=== PATIENT | male | born 1955 | race Caucasian/White ===

== ENCOUNTER 2019-02-01 15:48 | Observation (INO) ==
[2019-02-01] MEDS ORDERED: ZOFRAN INJ 4 MG VIAL IVP PRN (18:39)
[2019-02-01] MEDS ORDERED: PROVENTIL NEB TX 0.083% 2.5MG/ 3ML NEB PRN (18:41)
[2019-02-01] MEDS ORDERED: PHARMACY CONSULT - VANCOMYCIN XX SCH (19:00)
[2019-02-01 19:23] LABS: BASOPHILS % (AUTO) 0.2 % (0.2-1.0); EOSINOPHILS # (AUTO) 0.5 x10^3/uL (0.0-0.2); EOSINOPHILS % (AUTO) 3.7 % (0.9-2.9); HEMATOCRIT 42.8 % (42.0-54.0); HEMOGLOBIN 14.3 g/dL (13.5-18.0); LYMPHOCYTES # (AUTO) 2.8 X10^3/uL (1.3-2.9); LYMPHOCYTES % (AUTO) 18.8 % (21.0-51.0); MEAN CORPUSCULAR HEMOGLOBIN 30.7 pg (27.0-34.0); MEAN CORPUSCULAR HGB CONC 33.4 g/dL (33.0-35.0); MEAN CORPUSCULAR VOLUME 91.9 fL (80.0-100.0); MEAN PLATELET VOLUME 8.1 fL (7.4-11.0); MONOCYTES % (AUTO) 13.9 % (0.0-13.0); NEUTROPHILS # (AUTO) 9.3 x10^3/uL (2.2-4.8); NEUTROPHILS % (AUTO) 63.4 % (42.0-75.0); PLATELET COUNT 250 X10^3/uL (150.0-450.0); RED BLOOD COUNT 4.65 X10^6/uL (4.7-6.0); WHITE BLOOD COUNT 14.7 X10^3/uL (3.6-10.0)
[2019-02-01 19:33] LABS: ALANINE AMINOTRANSFERASE 20 Units/L (12-78); ALBUMIN 2.8 g/dL (3.4-5.0); ALKALINE PHOSPHATASE 64 Units/L (46-116); ASPARTATE AMINO TRANSFERASE 17 Units/L (15-37); BLOOD UREA NITROGEN 19 mg/dL (7-18); CALCIUM 8.5 mg/dL (8.5-10.1); CARBON DIOXIDE 29.1 mmol/L (21-32); CHLORIDE 101 mmol/L (98-107); COR CA(FOR HYPOALB) 9.5 mg/dL (8.5-10.1); CREATININE 1.33 mg/dL (0.70-1.30); SODIUM 139 mmol/L (136-145); eGFR NON BLACK RACES 58 (>60)
[2019-02-01] MEDS: NS 1000 ML 1,000 ML IV SCH (21:28)
[2019-02-01] MEDS: VANCOMYCIN HCL 1 G in D5W 250 ML IV 250 ML IV SCH (21:28)
[2019-02-01] MEDS ORDERED: POTASSIUM CHL 40 MEQ/NS 0.45% 500 ML IV PRN (21:30)
[2019-02-01] MEDS ORDERED: MICRO K EXTEN CAP 10 MEQ PO PRN (21:30)
[2019-02-01] MEDS ORDERED: POTASSIUM CHL 60 MEQ/NS 0.45% 500 ML IV PRN (21:30)
[2019-02-01] MEDS ORDERED: K-RIDER 10 MEQ/NS 100 ML 10 MEQ/100 ML BAG IV PRN (21:30)
[2019-02-01] MEDS ORDERED: POTASSIUM CHLORIDE LIQ 20 MEQ UDC PO PRN (21:30)
[2019-02-01] MEDS ORDERED: KLOR-CON PO PRN (21:30)
--- NOTE | 2019-02-01 22:59 | DR.UPDATE ---
H&P Update History and Physical Update: History and Physical reviewed and patient examined. Changes noted: Yes with the following: WAS SEEN IN THE OFFICE TODAY FOR RIGHT LOWER LEG CELLULITIS. HE WAS GIVEN A ROCEPHIN INJECTION YESTERDAY AND STARTED ON BACTRIM, HOWEVER, LEG APPEARS TO BE MORE REDDENED AND SWOLLEN TODAY. HE WAS ADMITTED FOR FURTHER EVALUATION AND TREATMENT OF RIGHT LOWER EXTREMITY CELLULITIS. ON ADMISSION, WE WILL OBTAIN A CBC, CMP, BLOOD CULTURES, WOUND CULTURES. WE WILL START NORMAL SALINE AND IV VANCOMYCIN. OTHERWISE, WE WILL FOLLOW UP WITH AM LABS AND CONTINUE TO MONITOR. Prescription drug monitoring program results: PDMP was not reviewed
[2019-02-01] MEDS: K-DUR TAB 20 MEQ PO PRN (23:05)
[2019-02-01] MEDS: MAGNESIUM SULFATE 1 GRAM/100 mL PREMIX 1 GM/100 ML BAG IV PRN (23:05)
[2019-02-02] MEDS: MAGNESIUM SULFATE 1 GRAM/100 mL PREMIX 1 GM/100 ML BAG IV PRN ×3 (00:15→02:18)
[2019-02-02] MEDS: VANCOMYCIN HCL 1 G in D5W 250 ML IV 250 ML IV SCH ×3 (05:24→22:58)
[2019-02-02 05:53] LABS: BASOPHILS % (AUTO) 0.3 % (0.2-1.0); EOSINOPHILS # (AUTO) 0.5 x10^3/uL (0.0-0.2); EOSINOPHILS % (AUTO) 3.7 % (0.9-2.9); HEMATOCRIT 42.3 % (42.0-54.0); LYMPHOCYTES # (AUTO) 2.6 X10^3/uL (1.3-2.9); LYMPHOCYTES % (AUTO) 18.8 % (21.0-51.0); MEAN CORPUSCULAR HEMOGLOBIN 30.4 pg (27.0-34.0); MEAN CORPUSCULAR HGB CONC 33.1 g/dL (33.0-35.0); MEAN CORPUSCULAR VOLUME 91.8 fL (80.0-100.0); MONOCYTES % (AUTO) 14.3 % (0.0-13.0); NEUTROPHILS # (AUTO) 8.8 x10^3/uL (2.2-4.8); NEUTROPHILS % (AUTO) 62.9 % (42.0-75.0); PLATELET COUNT 256 X10^3/uL (150.0-450.0); RED BLOOD COUNT 4.61 X10^6/uL (4.7-6.0); RED CELL DISTRIBUTION WIDTH 14.2 % (11.6-16.5)
[2019-02-02 06:14] LABS: ALANINE AMINOTRANSFERASE 19 Units/L (12-78); ALBUMIN 2.6 g/dL (3.4-5.0); ALKALINE PHOSPHATASE 56 Units/L (46-116); ASPARTATE AMINO TRANSFERASE 17 Units/L (15-37); BLOOD UREA NITROGEN 14 mg/dL (7-18); CALCIUM 8.1 mg/dL (8.5-10.1); CARBON DIOXIDE 26.5 mmol/L (21-32); CHLORIDE 101 mmol/L (98-107); COR CA(FOR HYPOALB) 9.2 mg/dL (8.5-10.1); COR NA(FOR HYPERGLY) 137 mmol/L (136-145); CREATININE 1.12 mg/dL (0.70-1.30); SODIUM 136 mmol/L (136-145); TOTAL PROTEIN 6.7 g/dL (6.4-8.2); eGFR NON BLACK RACES > 60 (>60)
[2019-02-02 06:16] VITALS: BMI 45.6
[2019-02-02 21:20] LABS: MAGNESIUM 1.9 mg/dL (1.7-2.9)
[2019-02-02] MEDS ORDERED: PHARMACY COMMENT IV NR (21:30)
[2019-02-02] MEDS: K-DUR TAB 20 MEQ PO PRN (21:36)
[2019-02-02] MEDS: NS 1000 ML 1,000 ML IV SCH (21:36)
[2019-02-02 22:06] LABS: CREATININE 1.29 mg/dL (0.70-1.30); VANCOMYCIN,TROUGH 11.4 ug/mL (15-20)
[2019-02-03] MEDS: VANCOMYCIN HCL 1 G in D5W 250 ML IV 250 ML IV SCH ×3 (05:11→21:21)
[2019-02-03 06:08] LABS: BASOPHILS % (AUTO) 0.4 % (0.2-1.0); EOSINOPHILS # (AUTO) 0.5 x10^3/uL (0.0-0.2); EOSINOPHILS % (AUTO) 3.9 % (0.9-2.9); HEMOGLOBIN 13.6 g/dL (13.5-18.0); LYMPHOCYTES # (AUTO) 2.1 X10^3/uL (1.3-2.9); LYMPHOCYTES % (AUTO) 17.6 % (21.0-51.0); MEAN CORPUSCULAR HEMOGLOBIN 30.2 pg (27.0-34.0); MEAN CORPUSCULAR HGB CONC 33.1 g/dL (33.0-35.0); MEAN CORPUSCULAR VOLUME 91.1 fL (80.0-100.0); MEAN PLATELET VOLUME 8.1 fL (7.4-11.0); MONOCYTES % (AUTO) 16.6 % (0.0-13.0); NEUTROPHILS # (AUTO) 7.5 x10^3/uL (2.2-4.8); NEUTROPHILS % (AUTO) 61.5 % (42.0-75.0); PLATELET COUNT 269 X10^3/uL (150.0-450.0); RED CELL DISTRIBUTION WIDTH 13.8 % (11.6-16.5); WHITE BLOOD COUNT 12.2 X10^3/uL (3.6-10.0)
[2019-02-03 06:27] LABS: ALANINE AMINOTRANSFERASE 20 Units/L (12-78); ALBUMIN 2.4 g/dL (3.4-5.0); ALKALINE PHOSPHATASE 57 Units/L (46-116); ASPARTATE AMINO TRANSFERASE 14 Units/L (15-37); BLOOD UREA NITROGEN 10 mg/dL (7-18); CALCIUM 8.1 mg/dL (8.5-10.1); CARBON DIOXIDE 27.7 mmol/L (21-32); CHLORIDE 106 mmol/L (98-107); COR CA(FOR HYPOALB) 9.4 mg/dL (8.5-10.1); COR NA(FOR HYPERGLY) 141 mmol/L (136-145); MAGNESIUM 1.8 mg/dL (1.7-2.9); SODIUM 140 mmol/L (136-145); TOTAL PROTEIN 6.5 g/dL (6.4-8.2); eGFR NON BLACK RACES > 60 (>60)
[2019-02-03] MEDS: MAGNESIUM SULFATE 1 GRAM/100 mL PREMIX 1 GM/100 ML BAG IV PRN (11:02)
[2019-02-03] MEDS: NS 1000 ML 1,000 ML IV SCH (16:22)
[2019-02-04 05:40] LABS: BASOPHILS # (AUTO) 0.1 X10^3/uL (0.0-0.1); BASOPHILS % (AUTO) 0.7 % (0.2-1.0); EOSINOPHILS # (AUTO) 0.7 x10^3/uL (0.0-0.2); EOSINOPHILS % (AUTO) 4.5 % (0.9-2.9); HEMATOCRIT 39.2 % (42.0-54.0); LYMPHOCYTES % (AUTO) 20.1 % (21.0-51.0); MEAN CORPUSCULAR HEMOGLOBIN 30.4 pg (27.0-34.0); MEAN CORPUSCULAR HGB CONC 33.2 g/dL (33.0-35.0); MEAN CORPUSCULAR VOLUME 91.6 fL (80.0-100.0); MEAN PLATELET VOLUME 7.8 fL (7.4-11.0); MONOCYTES # (AUTO) 1.6 x10^3/uL (0.3-0.8); MONOCYTES % (AUTO) 10.4 % (0.0-13.0); NEUTROPHILS # (AUTO) 9.7 x10^3/uL (2.2-4.8); NEUTROPHILS % (AUTO) 64.3 % (42.0-75.0); PLATELET COUNT 307 X10^3/uL (150.0-450.0); RED BLOOD COUNT 4.28 X10^6/uL (4.7-6.0); RED CELL DISTRIBUTION WIDTH 14.5 % (11.6-16.5)
[2019-02-04 05:50] LABS: ALANINE AMINOTRANSFERASE 20 Units/L (12-78); ALBUMIN 2.4 g/dL (3.4-5.0); ALKALINE PHOSPHATASE 54 Units/L (46-116); ASPARTATE AMINO TRANSFERASE 15 Units/L (15-37); BLOOD UREA NITROGEN 11 mg/dL (7-18); CALCIUM 8.1 mg/dL (8.5-10.1); CARBON DIOXIDE 28.1 mmol/L (21-32); CHLORIDE 105 mmol/L (98-107); COR CA(FOR HYPOALB) 9.4 mg/dL (8.5-10.1); CREATININE 0.97 mg/dL (0.70-1.30); SODIUM 141 mmol/L (136-145); TOTAL PROTEIN 6.7 g/dL (6.4-8.2); eGFR NON BLACK RACES > 60 (>60)
[2019-02-04] MEDS: MAGNESIUM SULFATE 1 GRAM/100 mL PREMIX 1 GM/100 ML BAG IV PRN ×2 (06:30→09:03)
[2019-02-04 07:03] LABS: CREATININE 1.01 mg/dL (0.70-1.30); VANCOMYCIN,TROUGH 13.5 ug/mL (15-20)
[2019-02-04] MEDS: VANCOMYCIN HCL 1 G in D5W 250 ML IV 250 ML IV SCH (07:07)
[2019-02-04 12:03] VITALS: BP 137/67
--- NOTE | 2019-03-17 11:22 | PCM.PROG ---
Progress Note - Progress Note for Day of Date of Exam: 02/03/19 - Subjective Subjective: WAS ADMITTED FOR RIGHT LOWER LEG CELLULITIS. TODAY, HE IS ALERT AND ORIENTED, LYING IN BED ON MORNING ROUNDS. HE CONTINUES WITH ERYTHEMA AND EDEMA TO THE RIGHT LOWER LEG. ON EXAMINATION, HEART IS REGULAR IN RATE AND RHYTHM. BILATERAL LUNGS ARE NOTED WITH DIMINISHED LUNG SOUNDS THROUGHOUT. ABDOMEN IS ROUND, SOFT, AND NON-TENDER WITH NORMAL BOWEL SOUNDS NOTED IN ALL QUADRANTS. RIGHT LEG IS NOTED WITH ERYTHMAS AND EDEMA. HIS VITALS THIS MORNING ARE 98.5-88-20-92%-120/59. LABS WERE OBTAINED. ABNORMAL LAB VALUES INCLUDE THE FOLLOWING: WBC 14.0, RBC 4.61, GLUCOSE 125, CALCIUM 8.1, ALBUMIN 2.6. BLOOD CULTURES ARE PENDING. HE IS CURRENTLY RECEIVING IV FLUIDS AND IV VANCOMYCIN. HOME MEDICATIONS WERE RESUMED. WE WILL CONTINUE WITH CURRENT PLAN OF CARE TODAY. OTHERWISE, WE WILL FOLLOW UP WITH AM LABS AND CONTINUE TO MONITOR. - Past Medical Family Social History Past Med/Fam/Surg Hx: No changes since H&P Allergies: Allergies aspirin Allergy (Verified 02/01/19 18:23) ibuprofen Allergy (Verified 02/01/19 18:23) - Review of Systems ROS: No change since H&P - Vital Signs and I&O's Vital Signs: Temperature 97.3 F Pulse Rate [Left Brachial] 76 Pulse Rate 80 Respiratory Rate 20 Blood Pressure [Left Arm] 137/67 O2 Sat by Pulse Oximetry 93 - Physical Exam Oriented: Normal Eyes: Normal Ear: Normal Nose: Normal Throat: Normal Respiratory: Generalized, Diminished Cardiovascular: Normal : Normal Auscultation: Bowel Sounds: Normal Palpation: Normal Tenderness: Normal Skin: Normal Musculoskeletal: Right, Leg, Swelling, Tender Psychiatric: Normal Mood Description: Calm Affect: Normal Speech Pattern: Clear, Appropriate - Laboratory and Diagnostics Result Diagrams: 02/04/19 05:05 02/04/19 05:05 Labs: 02/01/19 19:05 Blood Blood Culture - Final 02/01/19 18:55 Blood Blood Culture - Final Laboratory WBC 15.0 X10^3/uL (3.6-10.0) H 02/04/19 05:05 RBC 4.28 X10^6/uL (4.7-6.0) L 02/04/19 05:05 Hgb 13.0 g/dL (13.5-18.0) L 02/04/19 05:05 Hct 39.2 % (42.0-54.0) L 02/04/19 05:05 MCV 91.6 fL (80.0-100.0) 02/04/19 05:05 MCH 30.4 pg (27.0-34.0) 02/04/19 05:05 MCHC 33.2 g/dL (33.0-35.0) 02/04/19 05:05 RDW 14.5 % (11.6-16.5) 02/04/19 05:05 Plt Count 307 X10^3/uL (150.0-450.0) 02/04/19 05:05 MPV 7.8 fL (7.4-11.0) 02/04/19 05:05 Neut % (Auto) 64.3 % (42.0-75.0) 02/04/19 05:05 Lymph % (Auto) 20.1 % (21.0-51.0) L 02/04/19 05:05 [place] % (Auto) 10.4 % (0.0-13.0) 02/04/19 05:05 Eos % (Auto) 4.5 % (0.9-2.9) H 02/04/19 05:05 Baso % (Auto) 0.7 % (0.2-1.0) 02/04/19 05:05 Neut # (Auto) 9.7 x10^3/uL (2.2-4.8) H 02/04/19 05:05 Lymph # (Auto) 3.0 X10^3/uL (1.3-2.9) H 02/04/19 05:05 [place] # (Auto) 1.6 x10^3/uL (0.3-0.8) H 02/04/19 05:05 Eos # (Auto) 0.7 x10^3/uL (0.0-0.2) H 02/04/19 05:05 Baso # (Auto) 0.1 X10^3/uL (0.0-0.1) 02/04/19 05:05 Absolute Nucleated RBC 0.0 /100WBC 02/04/19 05:05 Sodium 141 mmol/L (136-145) 02/04/19 05:05 Corrected Sodium TNP 02/04/19 05:05 Potassium 4.2 mmol/L (3.5-5.1) 02/04/19 05:05 Chloride 105 mmol/L (98-107) 02/04/19 05:05 Carbon Dioxide 28.1 mmol/L (21-32) 02/04/19 05:05 BUN 11 mg/dL (7-18) 02/04/19 05:05 Creatinine 0.97 mg/dL (0.70-1.30) 02/04/19 05:05 Creatinine 1.01 mg/dL (0.70-1.30) 02/04/19 05:05 Est GFR (MDRD) Af Amer > 60 (>60) 02/04/19 05:05 Est GFR (MDRD) Non-Af > 60 (>60) 02/04/19 05:05 Glucose 94 mg/dL (65-99) 02/04/19 05:05 Calcium 8.1 mg/dL (8.5-10.1) L 02/04/19 05:05 Corrected Calcium 9.4 mg/dL (8.5-10.1) 02/04/19 05:05 Magnesium 1.8 mg/dL (1.7-2.9) 02/04/19 05:05 Total Bilirubin 0.60 mg/dL (0.2-1.0) 02/04/19 05:05 AST 15 Units/L (15-37) 02/04/19 05:05 ALT 20 Units/L (12-78) 02/04/19 05:05 Alkaline Phosphatase 54 Units/L (46-116) 02/04/19 05:05 Total Protein 6.7 g/dL (6.4-8.2) 02/04/19 05:05 Albumin 2.4 g/dL (3.4-5.0) L 02/04/19 05:05 Globulin 4.3 g/dL (2.5-4.5) 02/04/19 05:05 Albumin/Globulin Ratio 0.6 Ratio (1.1-2.1) L 02/04/19 05:05 Vancomycin Trough 13.5 ug/mL (15-20) L 02/04/19 05:05 - Plan (1) Lower extremity cellulitis Status: Acute Qualifiers: Laterality: right Qualified Code(s): L03.115 - Cellulitis of right lower limb Plan: IV FLUIDS, IV VANCOMYCIN, BLOOD CULTURES PENDING, CONTINUE TO MONITOR
== END 2019-02-04 12:30 | disposition home or self-care (01) ==
LOC: MED/SURG
PROVIDERS: ADMIT Internal Medicine; ATTEND Internal Medicine
DX: R11.0 Nausea; R60.0 Localized edema; M79.661 Pain in right lower leg; L03.115 Cellulitis of right lower limb; Z79.899 Other long term (current) drug therapy; R51 Headache
CPT/HCPCS: 36415; 80053; 80202; 82565; 83735; 85025; 87040; 94760; 96367; A4216; G0378; J3370; J3475; J7030; J7060

== ENCOUNTER 2024-04-20 10:53 | Observation (INO) ==
[2024-04-20 11:16] VITALS: BMI 49.6
[2024-04-20] MEDS: DUONEB 0.5 MG/3 MG (3 mL) NEB ONE (11:43)
[2024-04-20] MEDS: SOLU-Medrol 125 MG VIAL IM ONE (11:43)
[2024-04-20 12:21] LABS: BASOPHILS # (AUTO) 0.1 X10^3/uL (0.0-0.1); BASOPHILS % (AUTO) 0.5 % (0.2-1.0); EOSINOPHILS # (AUTO) 0.4 x10^3/uL (0.0-0.2); EOSINOPHILS % (AUTO) 2.9 % (0.9-2.9); HEMATOCRIT 47.2 % (42.0-54.0); HEMOGLOBIN 15.8 g/dL (13.5-18.0); LYMPHOCYTES # (AUTO) 1.7 X10^3/uL (1.3-2.9); LYMPHOCYTES % (AUTO) 11.5 % (21.0-51.0); MEAN CORPUSCULAR HEMOGLOBIN 30.8 pg (27.0-34.0); MEAN CORPUSCULAR HGB CONC 33.4 g/dL (33.0-35.0); MEAN CORPUSCULAR VOLUME 92.1 fL (80.0-100.0); MEAN PLATELET VOLUME 7.5 fL (7.4-11.0); MONOCYTES # (AUTO) 1.5 x10^3/uL (0.3-0.8); MONOCYTES % (AUTO) 10.3 % (0.0-13.0); NEUTROPHILS # (AUTO) 10.8 x10^3/uL (2.2-4.8); NEUTROPHILS % (AUTO) 74.8 % (42.0-75.0); PLATELET COUNT 282 X10^3/uL (150.0-450.0); RED BLOOD COUNT 5.13 X10^6/uL (4.7-6.0); RED CELL DISTRIBUTION WIDTH 14.9 % (11.6-16.5); WHITE BLOOD COUNT 14.4 X10^3/uL (3.6-10.0)
[2024-04-20 12:33] LABS: CALCIUM 8.6 mg/dL (8.5-10.1); CARBON DIOXIDE 36.1 mmol/L (21-32); COR CA(FOR HYPOALB) 9.4 mg/dL (8.5-10.1); CREATININE 1.63 mg/dL (0.70-1.30); POTASSIUM 4.9 mmol/L (3.5-5.1); TOTAL PROTEIN 7.4 g/dL (6.4-8.2)
--- NOTE | 2024-04-20 13:44 | DR.SOBA ---
HPI Time Seen Time Seen by Provider: 04/20/24 13:32 Primary Care Physician Primary Care Physician: Zackary HPI Comment HPI Comment: Patient with history of COPD has been out of his Trelegy inhaler. He has been having worsening shortness of breath since Monday. Feels like he was sick with upper respiratory infection. He has been having fever and cough. Complains of wheezing and shortness of breath. Complaints Chief Complaint:: Patient states that starting Monday he has felt like he has been sick with an upper respiratory illness. He states that he has been running fevers and coughing. He states that last night he was felt like he couldn't catch his breath. He states that he has COPD and also has a Trelegy inhailer. He states that he was unable to get it from the pharmacy for a few days and just now was able to get it. He is unsure if this has caused his issues with the shortness of breath. COVID-19 Coronavirus risk:travel/contact w/high risk person: No Has patient experienced Coronavirus symptoms: No Source History Provided: Patient Mode of Arrival Mode of Arrival: Wheelchair Timing Onset of Chief Complaint: 04/19/24 PMH PMH Past Medical History: Yes Past Medical History: Anxiety, Arthritis, COPD, CVA, Depression, Dyslipidemia, GERD, Hypertension and Kidney Stones Past Surgical History: Yes Surgical History: TURP and Lithotripsy Family History History of Family Medical Conditions: Yes Family Medical History: Diabetes Mellitus, Cancer, Coronary Artery Disease, Heart Failure, Sudden Cardiac and Hypertension Social History Does patient currently use any type of tobacco product: Yes Have you used tobacco products in the last 12 months: Yes Type of Tobacco Use: Cigarettes Does any household member use tobacco: Yes Alcohol Use: None Do you use any recreational Drugs:: No Lives With: Family Lives Where: Home Travel Risk Coronavirus risk:travel/contact w/high risk person: No Has patient experienced Coronavirus symptoms: No Infectious screening In the last 2 months have you had wt loss of >10#?: NO Have you had fever, night sweats or hemotysis?: No Have you traveled outside the country in the last 6 months?: No Isolation: Standard ROS Review of Systems Constitutional: No Symptoms Reported Eyes: No Symptoms Reported ENTM: No Symptoms Reported Respiratoy: See HPI, Non-Productive Cough, Short of Breath and Wheezing Cardiovascular: No Symptoms Reported; negative Chest Pain, Edema or Syncope Gastrointestinal/Abdominal: No Symptoms Reported Genitourinary: No Symptoms Reported Neurological: No Symptoms Reported Musculoskeletal: No Symptoms Reported Integumentary: No Symptoms Reported Hematologic/Lymphatic: No Symptoms Reported Endocrine: No Symptoms Reported Psychiatric: No Symptoms Reported All Other Systems: Reviewed and Negative PE Vital Signs Vitals: Vital Signs Temperature 97.6 F Pulse Rate 82 Pulse Rate 83 Pulse Rate 83 Pulse Rate 84 Pulse Rate 85 Pulse Rate 84 Pulse Rate 87 Pulse Rate 85 Pulse Rate 86 Pulse Rate 97 Respiratory Rate 29 Respiratory Rate 27 Respiratory Rate 32 Respiratory Rate 26 Respiratory Rate 28 Respiratory Rate 32 Respiratory Rate 30 Respiratory Rate 31 Respiratory Rate 18 Blood Pressure 160/73 Blood Pressure 155/73 Blood Pressure 150/77 Blood Pressure 160/74 Blood Pressure 160/74 Blood Pressure 136/89 O2 Sat by Pulse Oximetry 94 O2 Sat by Pulse Oximetry 94 O2 Sat by Pulse Oximetry 94 O2 Sat by Pulse Oximetry 95 O2 Sat by Pulse Oximetry 94 O2 Sat by Pulse Oximetry 100 O2 Sat by Pulse Oximetry 96 O2 Sat by Pulse Oximetry 88 O2 Sat by Pulse Oximetry 87 O2 Sat by Pulse Oximetry 93 General Limitations: No Limitations General Appearance: Alert and In No Apparent Distress Head Head Exam: Normal Inspection Eyes Eye exam: Normal Appearance ENT ENT Exam: Normal Exam Neck Neck Exam: Normal Inspection Chest Chest Inspection: Normal Inspection Respiratory Respiratory Exam: Other (Diminished right lower lung. Otherwise coarse and wheezing bilaterally.) Respiratory Exam: Bilateral: Wheezing Cardiovascular Cardiovascular Exam: Regular Rate and Normal Rhythm Abdominal Exam Abdominal Exam: Normal Inspection, Normal Bowel Sounds and Soft Extremities Extremities Exam: Normal Inspection Back Back Exam: Normal Inspection Neurologic Neurological Exam: Alert and Oriented X3 Psychiatric Psychiatric Exam: Normal Affect and Normal Mood Skin Skin Exam: Warm, Dry, Intact and Normal Color COURSE Consultation Called: 14:09 Consultation Comments: Discussed case with Dr. Tran. Will admit patient for COPD exacerbation and pneumonia of the right lower lung. [facility]OR Labs Reviewed 04/20/24 12:12 04/20/24 12:12 Laboratory: WBC 14.4 X10^3/uL (3.6-10.0) H 04/20/24 12:12 RBC 5.13 X10^6/uL (4.7-6.0) 04/20/24 12:12 Hgb 15.8 g/dL (13.5-18.0) 04/20/24 12:12 Hct 47.2 % (42.0-54.0) 04/20/24 12:12 MCV 92.1 fL (80.0-100.0) 04/20/24 12:12 MCH 30.8 pg (27.0-34.0) 04/20/24 12:12 MCHC 33.4 g/dL (33.0-35.0) 04/20/24 12:12 RDW 14.9 % (11.6-16.5) 04/20/24 12:12 Plt Count 282 X10^3/uL (150.0-450.0) 04/20/24 12:12 MPV 7.5 fL (7.4-11.0) 04/20/24 12:12 Neut % (Auto) 74.8 % (42.0-75.0) 04/20/24 12:12 Lymph % (Auto) 11.5 % (21.0-51.0) L 04/20/24 12:12 [place] % (Auto) 10.3 % (0.0-13.0) 04/20/24 12:12 Eos % (Auto) 2.9 % (0.9-2.9) 04/20/24 12:12 Baso % (Auto) 0.5 % (0.2-1.0) 04/20/24 12:12 Neut # (Auto) 10.8 x10^3/uL (2.2-4.8) H 04/20/24 12:12 Lymph # (Auto) 1.7 X10^3/uL (1.3-2.9) 04/20/24 12:12 [place] # (Auto) 1.5 x10^3/uL (0.3-0.8) H 04/20/24 12:12 Eos # (Auto) 0.4 x10^3/uL (0.0-0.2) H 04/20/24 12:12 Baso # (Auto) 0.1 X10^3/uL (0.0-0.1) 04/20/24 12:12 Absolute Nucleated RBC 0.1 /100WBC 04/20/24 12:12 Sodium 141 mmol/L (136-145) 04/20/24 12:12 Corrected Sodium 142 mmol/L (136-145) 04/20/24 12:12 Potassium 4.9 mmol/L (3.5-5.1) 04/20/24 12:12 Chloride 102 mmol/L (98-107) 04/20/24 12:12 Carbon Dioxide 36.1 mmol/L (21-32) H 04/20/24 12:12 BUN 24 mg/dL (7-18) H 04/20/24 12:12 Creatinine 1.63 mg/dL (0.70-1.30) H 04/20/24 12:12 Est GFR (MDRD) Af Amer 55 (>60) L 04/20/24 12:12 Est GFR (MDRD) Non-Af 45 (>60) L 04/20/24 12:12 Glucose 131 mg/dL (65-99) H 04/20/24 12:12 Calcium 8.6 mg/dL (8.5-10.1) 04/20/24 12:12 Corrected Calcium 9.4 mg/dL (8.5-10.1) 04/20/24 12:12 Total Bilirubin 0.40 mg/dL (0.2-1.0) 04/20/24 12:12 AST 16 Units/L (15-37) 04/20/24 12:12 ALT 19 Units/L (12-78) 04/20/24 12:12 Alkaline Phosphatase 75 Units/L (46-116) 04/20/24 12:12 B-Natriuretic Peptide 82.1 pg/mL (0-79) H 04/20/24 12:12 Total Protein 7.4 g/dL (6.4-8.2) 04/20/24 12:12 Albumin 3.0 g/dL (3.4-5.0) L 04/20/24 12:12 Globulin 4.4 g/dL (2.5-4.5) 04/20/24 12:12 Albumin/Globulin Ratio 0.7 Ratio (1.1-2.1) L 04/20/24 12:12 Opioid Opioid Risk Tool Age (Dominic box if 16-45): No History of Preadolescent Sexual Abuse: No Total: 0 Total Score Risk Category: Low Risk Copyright: Pierce SHEA predicting aberrant behaviors Discharge Plan Diagnosis Discharge Problem: COPD exacerbation, Community acquired pneumonia of right lower lobe of lung Discharge Plan Patient Disposition: ADMITTED INPATIENT Condition: Stable Prescriptions: No Action meloxicam 15 mg tablet 15 mg PO QDAY Trelegy Ellipta 100-62.5-25 mcg blister with device 1 ea INHALATION QDAY clopidogrel 75 mg tablet 75 mg PO QDAY hydrocodone-acetaminophen 10-325 mg tablet 1 tab PO TID PRN (Reason: pain) omeprazole 40 mg capsule,delayed release(DR/EC) 40 mg PO QDAY montelukast 10 mg tablet 10 mg PO DAILY furosemide 20 mg tablet 20 mg PO QDAY paroxetine HCl 40 mg tablet 40 mg PO QDAY sildenafil (pulm.hypertension) 20 mg tablet 20 mg PO QDAY PRN Health Concerns: Post Hospitalization: new medications and changes needed to prevent readmission or further decline. Pt educated and given instructions on all concerns. Plan of Treatment: Continue with present treatment and follow up plan. Pt is to keep follow up appointment as instructed and take medications as ordered. Orders to Discharge Patient Discharge Orders: Transfer (Routine); Ordered 04/20/24 Ordered By: Tao Henriquez Follow ups/Referrals Follow ups/Referrals: Palomo Raymundo [Primary Care Provider] - 3 days Instructions Stand Alone Forms: Find Help Web Site, Post Hospital Follow Up Care
[2024-04-20] MEDS: CIPRO IV 400 MG PREMIX* 400 MG/200 ML IV.SOLN. IV ONE (14:04)
[2024-04-20 15:52] LABS: ABG BASE EXCESS 4.9 mmol/L (-2.0-2.0)
[2024-04-20] MEDS: NICOTINE PATCH TD SCH (16:33)
[2024-04-20] MEDS: NS 1,000 ML IV 1,000 ML IV SCH (16:34)
[2024-04-20] MEDS: DUONEB 0.5 MG/3 MG (3 mL) NEB SCH (17:10)
[2024-04-20] MEDS: PULMICORT NEB TX 0.5 MG NEB SCH (19:59)
[2024-04-20] MEDS: SOLU-Medrol 125 MG VIAL IVP SCH (21:56)
[2024-04-20] MEDS: CIPRO IV 400 MG PREMIX* 400 MG/200 ML IV.SOLN. IV SCH (21:58)
--- NOTE | 2024-04-20 23:03 | RAD ---
EXAM:CHEST, 1 VIEWHISTORY:short of breath;COMPARISON:05/31/2023FINDINGS:The trachea is midline. The cardiac silhouette is unremarkable . The lungs are clear without focal infiltrate or effusion. The bony thorax is unremarkable.IMPRESSION:No acute cardiopulmonary disease.THIS IS AN ELECTRONICALLY VERIFIED FINAL REPORT04/20/2024 10:59 PM - Electronically signed by Trav Benavidez MD
[2024-04-21] MEDS: PEPCID TAB 20 MG PO SCH (00:54)
[2024-04-21] MEDS: NORCO 5/325 MG TAB PO PRN (00:56)
[2024-04-21 04:45] LABS: BILIRUBIN,URINE NEGATIVE (NEGATIVE); BLOOD/HEMOGLOBIN,URINE 1+ (NEGATIVE); GLUCOSE, URINE 2+ (NEGATIVE); KETONES,URINE NEGATIVE (NEGATIVE); LEUKOCYTE ESTERASE ,URINE NEGATIVE (NEGATIVE); NITRITES,URINE NEGATIVE (NEGATIVE); PROTEIN,URINE 2+ (NEGATIVE); UROBILINOGEN,URINE NORMAL (NORMAL)
[2024-04-21 04:48] LABS: APPEARANCE,URINE CLEAR (CLEAR); BACTERIA,URINE NEGATIVE /HPF (NEGATIVE); COLOR,URINE YELLOW (YELLOW); RBC,URINE NONE SEEN /HPF (0-3); SQUAMOUS EPITHELIAL CELL,UR RARE /HPF (NEGATIVE)
[2024-04-21 06:24] LABS: BASOPHILS % (AUTO) 0.4 % (0.2-1.0); HEMATOCRIT 47.4 % (42.0-54.0); LYMPHOCYTES # (AUTO) 0.6 X10^3/uL (1.3-2.9); LYMPHOCYTES % (AUTO) 4.5 % (21.0-51.0); MEAN CORPUSCULAR HEMOGLOBIN 31.2 pg (27.0-34.0); MEAN CORPUSCULAR HGB CONC 33.7 g/dL (33.0-35.0); MEAN CORPUSCULAR VOLUME 92.5 fL (80.0-100.0); MONOCYTES # (AUTO) 0.3 x10^3/uL (0.3-0.8); MONOCYTES % (AUTO) 2.2 % (0.0-13.0); NEUTROPHILS # (AUTO) 11.9 x10^3/uL (2.2-4.8); NEUTROPHILS % (AUTO) 92.9 % (42.0-75.0); PLATELET COUNT 302 X10^3/uL (150.0-450.0); RED BLOOD COUNT 5.13 X10^6/uL (4.7-6.0); RED CELL DISTRIBUTION WIDTH 14.8 % (11.6-16.5); WHITE BLOOD COUNT 12.8 X10^3/uL (3.6-10.0)
[2024-04-21 06:25] LABS: ALANINE AMINOTRANSFERASE 18 Units/L (12-78); ALKALINE PHOSPHATASE 82 Units/L (46-116); ASPARTATE AMINO TRANSFERASE 16 Units/L (15-37); BLOOD UREA NITROGEN 23 mg/dL (7-18); CALCIUM 8.6 mg/dL (8.5-10.1); CARBON DIOXIDE 31.1 mmol/L (21-32); CHLORIDE 103 mmol/L (98-107); COR CA(FOR HYPOALB) 9.4 mg/dL (8.5-10.1); COR NA(FOR HYPERGLY) 142 mmol/L (136-145); CREATININE 1.35 mg/dL (0.70-1.30); GLUCOSE 159 mg/dL (65-99); POTASSIUM 4.5 mmol/L (3.5-5.1); SODIUM 141 mmol/L (136-145); TOTAL PROTEIN 7.6 g/dL (6.4-8.2); eGFR NON BLACK RACES 56 (>60)
[2024-04-21 06:49] LABS: PLATELET MORPHOLOGY COMMENT NORMAL (NORMAL)
[2024-04-21] MEDS: PULMICORT NEB TX 0.5 MG NEB ONE (07:12)
[2024-04-21] MEDS: TYLENOL 325 MG TAB PO PRN (10:24)
[2024-04-21] MEDS: PLAVIX PO SCH (14:31)
[2024-04-21] MEDS: SINGULAIR TAB 10 MG PO SCH (14:32)
[2024-04-21] MEDS: LASIX IVP SCH (14:33)
--- NOTE | 2024-04-21 14:34 | DR.H&P ---
H&P History & Physical for Day of: H&P Date: 04/21/24 Chief Complaint Chief Complaint: Shortness of breath History of Present Illness History of Present Illness: Patient presented to the ER from home due to worsening shortness of breath. He was without his Trelegy inhaler for a couple of days before he was able to pick it up from the pharmacy. Since that time he is felt like his breathing was not right. In the ER he was thought to be in a COPD exacerbation with open pneumonia. Responded well to steroids and nebs. Overnight his breathing improved but he still required O2 supplementation. Today reports that his legs seem more swollen and he is feeling a little more short of breath than he was overnight. He is able to sit up without coughing as much. He is also able to tolerate a diet today. ROS: 12 point ROS negative except as noted above. PE: Elderly, morbidly obese male in no acute distress. Sitting up on the bedside eating lunch. Head NCAT. Hearing intact conversation. Extraocular manage grossly normal. Neck full range of motion. Heart regular rate and rhythm. Lungs with wheezing and rhonchi throughout the right lower lung daily and crackles at the left lower lung daily. Air movement is good. Belly is soft, protuberant, with bowel sounds present. Mood and affect are appropriate. Bilateral lower extremities with 1+ pitting edema. Past Medical History Past Medical History: Anxiety, Arthritis, COPD, CVA, Depression, Dyslipidemia, GERD, Hypertension and Kidney Stones Past Surgical History Surgical History: TURP and Lithotripsy Family History Family Medical History: Diabetes Mellitus and Cancer Social History Does patient currently use any type of tobacco product: Yes Have you used tobacco products in the last 12 months: Yes Type of Tobacco Use: Cigarettes How many years tobacco product used: 10 Does any household member use tobacco: Yes Alcohol Use: None Medications Home Medications: Home Medications Medication Instructions Recorded Confirmed Type clopidogrel 75 mg tablet 75 mg PO QDAY 05/31/23 04/20/24 History furosemide 20 mg tablet 20 mg PO QDAY 05/31/23 04/20/24 History hydrocodone 10 mg-acetaminophen 1 tab PO TID PRN pain 05/31/23 04/20/24 History 325 mg tablet montelukast 10 mg tablet 10 mg PO DAILY 05/31/23 04/20/24 History omeprazole 40 mg capsule,delayed 40 mg PO QDAY 05/31/23 04/20/24 History release paroxetine HCl 40 mg tablet 40 mg PO QDAY 05/31/23 04/20/24 History sildenafil (pulm.hypertension) 20 20 mg PO QDAY PRN 05/31/23 04/20/24 History mg tablet fluticasone fur. 100 mcg-umeclid 1 ea inhalation QDAY 03/26/24 04/20/24 History 62.5 mcg-vilant 25 mcg inhalat.powder (Trelegy Ellipta) meloxicam 15 mg tablet 15 mg PO QDAY 03/26/24 04/20/24 History Allergies Allergies Allergy/AdvReac Type Severity Reaction Status Date / Time No Known Allergies Allergy Verified 04/20/24 12:41 Labs 04/21/24 05:41 04/21/24 05:41 Labs: Laboratory WBC 12.8 X10^3/uL (3.6-10.0) H 04/21/24 05:41 RBC 5.13 X10^6/uL (4.7-6.0) 04/21/24 05:41 Hgb 16.0 g/dL (13.5-18.0) 04/21/24 05:41 Hct 47.4 % (42.0-54.0) 04/21/24 05:41 MCV 92.5 fL (80.0-100.0) 04/21/24 05:41 MCH 31.2 pg (27.0-34.0) 04/21/24 05:41 MCHC 33.7 g/dL (33.0-35.0) 04/21/24 05:41 RDW 14.8 % (11.6-16.5) 04/21/24 05:41 Plt Count 302 X10^3/uL (150.0-450.0) 04/21/24 05:41 Plt Count Comment Adequate (ADEQUATE) 04/21/24 05:41 MPV 8.0 fL (7.4-11.0) 04/21/24 05:41 Neut % (Auto) 92.9 % (42.0-75.0) H 04/21/24 05:41 Lymph % (Auto) 4.5 % (21.0-51.0) L 04/21/24 05:41 [place] % (Auto) 2.2 % (0.0-13.0) 04/21/24 05:41 Eos % (Auto) 0.0 % (0.9-2.9) L 04/21/24 05:41 Baso % (Auto) 0.4 % (0.2-1.0) 04/21/24 05:41 Neut # (Auto) 11.9 x10^3/uL (2.2-4.8) H 04/21/24 05:41 Lymph # (Auto) 0.6 X10^3/uL (1.3-2.9) L 04/21/24 05:41 [place] # (Auto) 0.3 x10^3/uL (0.3-0.8) 04/21/24 05:41 Eos # (Auto) 0.0 x10^3/uL (0.0-0.2) 04/21/24 05:41 Baso # (Auto) 0.0 X10^3/uL (0.0-0.1) 04/21/24 05:41 Absolute Nucleated RBC 0.1 /100WBC 04/21/24 05:41 Total Counted 100 04/21/24 05:41 Neutrophils % (Manual) 95 % (39-76) H 04/21/24 05:41 Lymphocytes % (Manual) 4 % (13-43) L 04/21/24 05:41 Monocytes % (Manual) 1 % (4-9) L 04/21/24 05:41 Plt Morphology Comment Normal (NORMAL) 04/21/24 05:41 RBC Morphology Normal (NORMAL) 04/21/24 05:41 Sample Site Rb 04/20/24 15:43 ABG pH 7.350 (7.35-7.45) 04/20/24 15:43 ABG pCO2 58.0 mmHg (35.0-45.0) H* 04/20/24 15:43 ABG pO2 62.0 mmHg (80.0-100.0) L 04/20/24 15:43 ABG HCO3 32.0 mmol/L (22-26) H* 04/20/24 15:43 ABG O2 Saturation 90.0 % (90-100) 04/20/24 15:43 ABG Base Excess 4.9 mmol/L (-2.0-2.0) H 04/20/24 15:43 Jered Test N/a 04/20/24 15:43 A-a Gradient 94.0 mmHg 04/20/24 15:43 FiO2 32.0 04/20/24 15:43 Blood Gas Comments Pt adelaida well. kg/eb 04/20/24 15:43 Sodium 141 mmol/L (136-145) 04/21/24 05:41 Corrected Sodium 142 mmol/L (136-145) 04/21/24 05:41 Potassium 4.5 mmol/L (3.5-5.1) 04/21/24 05:41 Chloride 103 mmol/L (98-107) 04/21/24 05:41 Carbon Dioxide 31.1 mmol/L (21-32) 04/21/24 05:41 BUN 23 mg/dL (7-18) H 04/21/24 05:41 Creatinine 1.35 mg/dL (0.70-1.30) H 04/21/24 05:41 Est GFR (MDRD) Af Amer > 60 (>60) 04/21/24 05:41 Est GFR (MDRD) Non-Af 56 (>60) L 04/21/24 05:41 Glucose 159 mg/dL (65-99) H 04/21/24 05:41 Calcium 8.6 mg/dL (8.5-10.1) 04/21/24 05:41 Corrected Calcium 9.4 mg/dL (8.5-10.1) 04/21/24 05:41 Total Bilirubin 0.30 mg/dL (0.2-1.0) 04/21/24 05:41 AST 16 Units/L (15-37) 04/21/24 05:41 ALT 18 Units/L (12-78) 04/21/24 05:41 Alkaline Phosphatase 82 Units/L (46-116) 04/21/24 05:41 B-Natriuretic Peptide 82.1 pg/mL (0-79) H 04/20/24 12:12 Total Protein 7.6 g/dL (6.4-8.2) 04/21/24 05:41 Albumin 3.0 g/dL (3.4-5.0) L 04/21/24 05:41 Globulin 4.6 g/dL (2.5-4.5) H 04/21/24 05:41 Albumin/Globulin Ratio 0.7 Ratio (1.1-2.1) L 04/21/24 05:41 Specimen Type Random urine 04/21/24 04:26 Urine Color Yellow (YELLOW) 04/21/24 04:26 Urine Appearance Clear (CLEAR) 04/21/24 04:26 Urine pH 6.0 (5.0 - 8.0) 04/21/24 04:26 Ur Specific [place] 1.015 (1.000-1.030) 04/21/24 04:26 Urine Protein 2+ (NEGATIVE) 04/21/24 04:26 Urine Glucose (UA) 2+ (NEGATIVE) 04/21/24 04:26 Urine Ketones Negative (NEGATIVE) 04/21/24 04:26 Urine Blood 1+ (NEGATIVE) 04/21/24 04:26 Urine Nitrite Negative (NEGATIVE) 04/21/24 04:26 Urine Bilirubin Negative (NEGATIVE) 04/21/24 04:26 Urine Urobilinogen Normal (NORMAL) 04/21/24 04:26 Ur Leukocyte Esterase Negative (NEGATIVE) 04/21/24 04:26 Urine RBC None seen /HPF (0-3) 04/21/24 04:26 Urine WBC 0-2 /HPF (0-5) 04/21/24 04:26 Ur Squamous Epith Cells Rare /HPF (NEGATIVE) 04/21/24 04:26 Urine Bacteria Negative /HPF (NEGATIVE) 04/21/24 04:26 Ur Culture Indicated? No/not indicated 04/21/24 04:26 Physical Exam Vital Signs: Vital Signs Temperature 97.9 F Temperature 98.6 F Pulse Rate [Brachial] 98 Pulse Rate [Brachial] 86 Pulse Rate 86 Respiratory Rate 24 Respiratory Rate 20 Respiratory Rate 22 Respiratory Rate 22 Blood Pressure [Right Arm] 147/86 Blood Pressure [Right Arm] 124/62 O2 Sat by Pulse Oximetry 91 O2 Sat by Pulse Oximetry 93 O2 Sat by Pulse Oximetry 93 Assessment/Plan (1) COPD exacerbation: Narrative Support Text: Continue nebs, steroids, and Trelegy. Back on fluids Status: Acute (2) Community acquired pneumonia of right lower lobe of lung: Narrative Support Text: Continue antibiotics. Status: Acute (3) Bilateral lower extremity edema: Narrative Support Text: Lasix 40 IV today and tomorrow. Resume home meds Monday Status: Acute (4) JACINTO and COPD overlap syndrome: Narrative Support Text: Stressed need to be compliant with CPAP Status: Acute (5) Morbid obesity: Narrative Support Text: Needs weight loss. Status: Acute (6) Sepsis: Qualifiers: Sepsis type: sepsis due to unspecified organism Sepsis acute organ dysfunction status: without acute organ dysfunction Qualified Code(s): A41.9 - Sepsis, unspecified organism Narrative Support Text: Due to tachycardia and tachypnea with COPD exacerbation/RLL PNA. Status: Acute
[2024-04-21] MEDS: NORCO 10/325 TAB PO PRN (21:47)
[2024-04-22 05:47] LABS: BASOPHILS # (AUTO) 0.1 X10^3/uL (0.0-0.1); BASOPHILS % (AUTO) 0.3 % (0.2-1.0); HEMATOCRIT 46.2 % (42.0-54.0); HEMOGLOBIN 15.2 g/dL (13.5-18.0); LYMPHOCYTES # (AUTO) 0.7 X10^3/uL (1.3-2.9); LYMPHOCYTES % (AUTO) 4.2 % (21.0-51.0); MEAN CORPUSCULAR HEMOGLOBIN 30.3 pg (27.0-34.0); MEAN CORPUSCULAR HGB CONC 32.9 g/dL (33.0-35.0); MEAN CORPUSCULAR VOLUME 92.3 fL (80.0-100.0); MEAN PLATELET VOLUME 7.6 fL (7.4-11.0); MONOCYTES # (AUTO) 1.1 x10^3/uL (0.3-0.8); MONOCYTES % (AUTO) 6.2 % (0.0-13.0); NEUTROPHILS # (AUTO) 15.7 x10^3/uL (2.2-4.8); NEUTROPHILS % (AUTO) 89.3 % (42.0-75.0); PLATELET COUNT 298 X10^3/uL (150.0-450.0); RED CELL DISTRIBUTION WIDTH 14.7 % (11.6-16.5); WHITE BLOOD COUNT 17.6 X10^3/uL (3.6-10.0)
[2024-04-22 05:58] LABS: ALANINE AMINOTRANSFERASE 16 Units/L (12-78); ALBUMIN 2.8 g/dL (3.4-5.0); ALKALINE PHOSPHATASE 75 Units/L (46-116); ASPARTATE AMINO TRANSFERASE 13 Units/L (15-37); BLOOD UREA NITROGEN 27 mg/dL (7-18); CALCIUM 8.7 mg/dL (8.5-10.1); CHLORIDE 105 mmol/L (98-107); COR CA(FOR HYPOALB) 9.7 mg/dL (8.5-10.1); COR NA(FOR HYPERGLY) 144 mmol/L (136-145); CREATININE 1.26 mg/dL (0.70-1.30); GLUCOSE 176 mg/dL (65-99); POTASSIUM 4.8 mmol/L (3.5-5.1); SODIUM 142 mmol/L (136-145); TOTAL PROTEIN 7.1 g/dL (6.4-8.2); eGFR NON BLACK RACES > 60 (>60)
--- NOTE | 2024-04-22 07:04 | RAD ---
EXAM:AP chestHISTORY:COPDCOMPARISON:04/20/2024 br.br.br.br hyperinflation and no evidence for developing CHF, pneumothorax, pleural fluid or CHF.IMPRESSION:No change.THIS IS AN ELECTRONICALLY VERIFIED FINAL REPORT04/22/2024 7:00 AM - Electronically signed by Juan Ramon Irizarry MD
--- NOTE | 2024-04-22 10:27 | PCM.PROG ---
Progress Note Progress Note for Day of Date of Exam: 04/22/24 Subjective Subjective: Patient seen at bedside, no acute events overnight. He states he feels slightly better, still has some dyspnea. He is on 3L NC. He does not use O2 at home. He is admitted for COPD exacerbation. He remains on IV antibiotics and steroids. Labs/imaging reviewed: -WBC 17 Hgb 15 BUN/Cr 27/1.26 Mag 1.9 -CXR: no pneumonia -Blood Cx neg Plan: Wean O2 as tolerated, continue nebs, pulmicort and IS. Will switch to Zosyn, taper solumedrol. Resume home medications. Replace electrolytes as per protocol. Follow pending cultures and AIT. Monitor AM labs/imaging. PT/OT as tolerated. Past Medical Family Social History Allergies: Allergies No Known Allergies Allergy (Verified 04/20/24 12:41) Vital Signs and I&O's Vital Signs: Vital Signs Temperature 98.2 F Temperature 98.0 F Pulse Rate [Brachial] 85 Pulse Rate [Brachial] 103 Pulse Rate 92 Respiratory Rate 20 Respiratory Rate 19 Blood Pressure [Right Arm] 171/89 Blood Pressure [Right Arm] 167/86 O2 Sat by Pulse Oximetry 91 O2 Sat by Pulse Oximetry 95 O2 Sat by Pulse Oximetry 92 Intake and Output: Intake & Output 04/19/24 04/20/24 04/21/24 04/22/24 23:59 23:59 23:59 23:59 Intake Total 120 / 120 2988 / 2988 648 / 648 Output Total 276 / 276 1302 / 1302 225 / 225 Balance -156 / -156 1686 / 1686 423 / 423 Physical Exam Oriented: Normal Nose: Normal Throat: Normal Respiratory: Generalized, Diminished and Wheezes Cardiovascular: Normal Auscultation: Bowel Sounds: Normal Palpation: Normal Tenderness: Normal Skin: Normal Musculoskeletal: Normal Psychiatric: Normal Mood Description: Calm Affect: Normal Speech Pattern: Clear and Appropriate Laboratory and Diagnostics 04/22/24 05:18 04/22/24 05:18 Labs: 04/20/24 14:00 Blood Blood Culture - Preliminary 04/20/24 13:50 Blood Blood Culture - Preliminary Laboratory WBC 17.6 X10^3/uL (3.6-10.0) H 04/22/24 05:18 RBC 5.00 X10^6/uL (4.7-6.0) 04/22/24 05:18 Hgb 15.2 g/dL (13.5-18.0) 04/22/24 05:18 Hct 46.2 % (42.0-54.0) 04/22/24 05:18 MCV 92.3 fL (80.0-100.0) 04/22/24 05:18 MCH 30.3 pg (27.0-34.0) 04/22/24 05:18 MCHC 32.9 g/dL (33.0-35.0) L 04/22/24 05:18 RDW 14.7 % (11.6-16.5) 04/22/24 05:18 Plt Count 298 X10^3/uL (150.0-450.0) 04/22/24 05:18 Plt Count Comment Adequate (ADEQUATE) 04/21/24 05:41 MPV 7.6 fL (7.4-11.0) 04/22/24 05:18 Neut % (Auto) 89.3 % (42.0-75.0) H 04/22/24 05:18 Lymph % (Auto) 4.2 % (21.0-51.0) L 04/22/24 05:18 [place] % (Auto) 6.2 % (0.0-13.0) 04/22/24 05:18 Eos % (Auto) 0.0 % (0.9-2.9) L 04/22/24 05:18 Baso % (Auto) 0.3 % (0.2-1.0) 04/22/24 05:18 Neut # (Auto) 15.7 x10^3/uL (2.2-4.8) H 04/22/24 05:18 Lymph # (Auto) 0.7 X10^3/uL (1.3-2.9) L 04/22/24 05:18 [place] # (Auto) 1.1 x10^3/uL (0.3-0.8) H 04/22/24 05:18 Eos # (Auto) 0.0 x10^3/uL (0.0-0.2) 04/22/24 05:18 Baso # (Auto) 0.1 X10^3/uL (0.0-0.1) 04/22/24 05:18 Absolute Nucleated RBC 0.1 /100WBC 04/22/24 05:18 Total Counted 100 04/21/24 05:41 Neutrophils % (Manual) 95 % (39-76) H 04/21/24 05:41 Lymphocytes % (Manual) 4 % (13-43) L 04/21/24 05:41 Monocytes % (Manual) 1 % (4-9) L 04/21/24 05:41 Plt Morphology Comment Normal (NORMAL) 04/21/24 05:41 RBC Morphology Normal (NORMAL) 04/21/24 05:41 Sample Site Rb 04/20/24 15:43 ABG pH 7.350 (7.35-7.45) 04/20/24 15:43 ABG pCO2 58.0 mmHg (35.0-45.0) H* 04/20/24 15:43 ABG pO2 62.0 mmHg (80.0-100.0) L 04/20/24 15:43 ABG HCO3 32.0 mmol/L (22-26) H* 04/20/24 15:43 ABG O2 Saturation 90.0 % (90-100) 04/20/24 15:43 ABG Base Excess 4.9 mmol/L (-2.0-2.0) H 04/20/24 15:43 Jered Test N/a 04/20/24 15:43 A-a Gradient 94.0 mmHg 04/20/24 15:43 FiO2 32.0 04/20/24 15:43 Blood Gas Comments Pt adelaida well. kg/eb 04/20/24 15:43 Sodium 142 mmol/L (136-145) 04/22/24 05:18 Corrected Sodium 144 mmol/L (136-145) 04/22/24 05:18 Potassium 4.8 mmol/L (3.5-5.1) 04/22/24 05:18 Chloride 105 mmol/L (98-107) 04/22/24 05:18 Carbon Dioxide 32.0 mmol/L (21-32) 04/22/24 05:18 BUN 27 mg/dL (7-18) H 04/22/24 05:18 Creatinine 1.26 mg/dL (0.70-1.30) 04/22/24 05:18 Est GFR (MDRD) Af Amer > 60 (>60) 04/22/24 05:18 Est GFR (MDRD) Non-Af > 60 (>60) 04/22/24 05:18 Glucose 176 mg/dL (65-99) H 04/22/24 05:18 Calcium 8.7 mg/dL (8.5-10.1) 04/22/24 05:18 Corrected Calcium 9.7 mg/dL (8.5-10.1) 04/22/24 05:18 Magnesium 1.9 mg/dL (2.0-2.9) L 04/22/24 05:18 Total Bilirubin 0.20 mg/dL (0.2-1.0) 04/22/24 05:18 AST 13 Units/L (15-37) L 04/22/24 05:18 ALT 16 Units/L (12-78) 04/22/24 05:18 Alkaline Phosphatase 75 Units/L (46-116) 04/22/24 05:18 B-Natriuretic Peptide 82.1 pg/mL (0-79) H 04/20/24 12:12 Total Protein 7.1 g/dL (6.4-8.2) 04/22/24 05:18 Albumin 2.8 g/dL (3.4-5.0) L 04/22/24 05:18 Globulin 4.3 g/dL (2.5-4.5) 04/22/24 05:18 Albumin/Globulin Ratio 0.7 Ratio (1.1-2.1) L 04/22/24 05:18 Specimen Type Random urine 04/21/24 04:26 Urine Color Yellow (YELLOW) 04/21/24 04:26 Urine Appearance Clear (CLEAR) 04/21/24 04:26 Urine pH 6.0 (5.0 - 8.0) 04/21/24 04:26 Ur Specific [place] 1.015 (1.000-1.030) 04/21/24 04:26 Urine Protein 2+ (NEGATIVE) 04/21/24 04:26 Urine Glucose (UA) 2+ (NEGATIVE) 04/21/24 04:26 Urine Ketones Negative (NEGATIVE) 04/21/24 04:26 Urine Blood 1+ (NEGATIVE) 04/21/24 04:26 Urine Nitrite Negative (NEGATIVE) 04/21/24 04:26 Urine Bilirubin Negative (NEGATIVE) 04/21/24 04:26 Urine Urobilinogen Normal (NORMAL) 04/21/24 04:26 Ur Leukocyte Esterase Negative (NEGATIVE) 04/21/24 04:26 Urine RBC None seen /HPF (0-3) 04/21/24 04:26 Urine WBC 0-2 /HPF (0-5) 04/21/24 04:26 Ur Squamous Epith Cells Rare /HPF (NEGATIVE) 04/21/24 04:26 Urine Bacteria Negative /HPF (NEGATIVE) 04/21/24 04:26 Ur Culture Indicated? 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
[2024-04-22] MEDS ORDERED: NS 250 ML IV 250 ML IV ONE (10:39)
[2024-04-22] MEDS: NS 250 ML IV 25 ML IV PRN (10:47)
[2024-04-22] MEDS: ZOSYN VIAL 3.375 GRAMS 3.375 G in NS 100 ML IV 100 ML IV SCH (10:47)
[2024-04-22] MEDS: LOVENOX INJ 40 MG SYR SC SCH (10:48)
[2024-04-22] MEDS: PriLOSEC PO SCH (10:49)
[2024-04-22] MEDS: PAXIL PO SCH (10:49)
[2024-04-22] MEDS: SOLU-Medrol 125 MG VIAL IVP SCH (15:11)
[2024-04-23 06:35] LABS: BASOPHILS % (AUTO) 0.1 % (0.2-1.0); HEMATOCRIT 45.9 % (42.0-54.0); HEMOGLOBIN 15.4 g/dL (13.5-18.0); LYMPHOCYTES # (AUTO) 1.1 X10^3/uL (1.3-2.9); LYMPHOCYTES % (AUTO) 6.3 % (21.0-51.0); MEAN CORPUSCULAR HEMOGLOBIN 30.9 pg (27.0-34.0); MEAN CORPUSCULAR HGB CONC 33.5 g/dL (33.0-35.0); MEAN CORPUSCULAR VOLUME 92.3 fL (80.0-100.0); MEAN PLATELET VOLUME 7.9 fL (7.4-11.0); NEUTROPHILS # (AUTO) 14.7 x10^3/uL (2.2-4.8); NEUTROPHILS % (AUTO) 87.6 % (42.0-75.0); PLATELET COUNT 299 X10^3/uL (150.0-450.0); RED BLOOD COUNT 4.97 X10^6/uL (4.7-6.0); RED CELL DISTRIBUTION WIDTH 14.7 % (11.6-16.5); WHITE BLOOD COUNT 16.8 X10^3/uL (3.6-10.0)
[2024-04-23 06:46] LABS: ALANINE AMINOTRANSFERASE 18 Units/L (12-78); ALBUMIN 2.8 g/dL (3.4-5.0); ALKALINE PHOSPHATASE 67 Units/L (46-116); ASPARTATE AMINO TRANSFERASE 12 Units/L (15-37); BLOOD UREA NITROGEN 29 mg/dL (7-18); CALCIUM 8.5 mg/dL (8.5-10.1); CARBON DIOXIDE 33.1 mmol/L (21-32); CHLORIDE 104 mmol/L (98-107); COR CA(FOR HYPOALB) 9.5 mg/dL (8.5-10.1); COR NA(FOR HYPERGLY) 143 mmol/L (136-145); CREATININE 1.25 mg/dL (0.70-1.30); GLUCOSE 130 mg/dL (65-99); POTASSIUM 4.7 mmol/L (3.5-5.1); SODIUM 142 mmol/L (136-145); TOTAL PROTEIN 6.8 g/dL (6.4-8.2); eGFR NON BLACK RACES > 60 (>60)
[2024-04-23] MEDS ORDERED: CONSULT PHARMACY - POTASSIUM & MAGNESIUM XX SCH (09:00)
--- NOTE | 2024-04-23 10:14 | RAD ---
EXAMINATION:CHEST, 1 VIEWHISTORY:copd; .COMPARISON STUDY:Chest x-ray 04/21/2024TECHNIQUE:2 frontal views of the chestFINDINGS:Lungs are expanded. Subtle bibasilar opacities. Mild cardiac silhouette enlargement. Normal pulmonary vascular pattern. Visualized osseous structures are unchanged.IMPRESSION:Subtle bibasilar opacities. Mild cardiac silhouette enlargement.THIS IS AN ELECTRONICALLY VERIFIED FINAL REPORT04/23/2024 10:11 AM - Electronically signed by Shawna Stanley MD
[2024-04-23] MEDS: MAG-OX TAB PO SCH (10:26)
[2024-04-23] MEDS: LASIX PO SCH (10:27)
--- NOTE | 2024-04-23 10:28 | PCM.PROG ---
Progress Note Progress Note for Day of Date of Exam: 04/23/24 Subjective Subjective: Patient seen at bedside, no acute events overnight. He remains on 3L NC. He states cough is better but he still feels short of breath. He is currently admitted for COPD exacerbation. He has been on IV antibiotics and steroids. Labs/imaging reviewed: -WBC 16.8 Hgb 15.4 BUN/Cr 229/1.25 -CXR: no pneumonia -Blood Cx neg -AIT pending Plan: Wean O2 as tolerated, continue nebs, pulmicort and IS. Repeat CXR. Continue Zosyn and solumedrol. Continue home medications. Will resume lasix. Replace electrolytes as per protocol. Follow pending cultures and AIT. Monitor AM labs/imaging. PT/OT as tolerated. Past Medical Family Social History Allergies: Allergies No Known Allergies Allergy (Verified 04/20/24 12:41) Vital Signs and I&O's Vital Signs: Vital Signs Temperature 97.7 F Temperature 97.7 F Pulse Rate [Brachial] 108 Pulse Rate [Brachial] 101 Pulse Rate 95 Respiratory Rate 23 Respiratory Rate 20 Blood Pressure [Right Arm] 169/73 Blood Pressure [Right Arm] 137/88 O2 Sat by Pulse Oximetry 94 O2 Sat by Pulse Oximetry 93 O2 Sat by Pulse Oximetry 92 Intake and Output: Intake & Output 04/20/24 04/21/24 04/22/24 04/23/24 23:59 23:59 23:59 23:59 Intake Total 120 / 120 2988 / 2988 2779 / 2779 610 / 610 Output Total 276 / 276 1302 / 1302 2525 / 2525 475 / 475 Balance -156 / -156 1686 / 1686 254 / 254 135 / 135 Physical Exam Oriented: Normal Nose: Normal Throat: Normal Respiratory: Generalized, Diminished and Wheezes Cardiovascular: Normal Auscultation: Bowel Sounds: Normal Palpation: Normal Tenderness: Normal Skin: Normal Musculoskeletal: Normal Psychiatric: Normal Mood Description: Calm Affect: Normal Speech Pattern: Clear and Appropriate Laboratory and Diagnostics 04/23/24 05:45 04/23/24 05:45 Labs: 04/20/24 14:00 Blood Blood Culture - Preliminary 04/20/24 13:50 Blood Blood Culture - Preliminary Laboratory WBC 16.8 X10^3/uL (3.6-10.0) H 04/23/24 05:45 RBC 4.97 X10^6/uL (4.7-6.0) 04/23/24 05:45 Hgb 15.4 g/dL (13.5-18.0) 04/23/24 05:45 Hct 45.9 % (42.0-54.0) 04/23/24 05:45 MCV 92.3 fL (80.0-100.0) 04/23/24 05:45 MCH 30.9 pg (27.0-34.0) 04/23/24 05:45 MCHC 33.5 g/dL (33.0-35.0) 04/23/24 05:45 RDW 14.7 % (11.6-16.5) 04/23/24 05:45 Plt Count 299 X10^3/uL (150.0-450.0) 04/23/24 05:45 Plt Count Comment Adequate (ADEQUATE) 04/21/24 05:41 MPV 7.9 fL (7.4-11.0) 04/23/24 05:45 Neut % (Auto) 87.6 % (42.0-75.0) H 04/23/24 05:45 Lymph % (Auto) 6.3 % (21.0-51.0) L 04/23/24 05:45 [place] % (Auto) 6.0 % (0.0-13.0) 04/23/24 05:45 Eos % (Auto) 0.0 % (0.9-2.9) L 04/23/24 05:45 Baso % (Auto) 0.1 % (0.2-1.0) L 04/23/24 05:45 Neut # (Auto) 14.7 x10^3/uL (2.2-4.8) H 04/23/24 05:45 Lymph # (Auto) 1.1 X10^3/uL (1.3-2.9) L 04/23/24 05:45 [place] # (Auto) 1.0 x10^3/uL (0.3-0.8) H 04/23/24 05:45 Eos # (Auto) 0.0 x10^3/uL (0.0-0.2) 04/23/24 05:45 Baso # (Auto) 0.0 X10^3/uL (0.0-0.1) 04/23/24 05:45 Absolute Nucleated RBC 0.1 /100WBC 04/23/24 05:45 Total Counted 100 04/21/24 05:41 Neutrophils % (Manual) 95 % (39-76) H 04/21/24 05:41 Lymphocytes % (Manual) 4 % (13-43) L 04/21/24 05:41 Monocytes % (Manual) 1 % (4-9) L 04/21/24 05:41 Plt Morphology Comment Normal (NORMAL) 04/21/24 05:41 RBC Morphology Normal (NORMAL) 04/21/24 05:41 Sample Site Rb 04/20/24 15:43 ABG pH 7.350 (7.35-7.45) 04/20/24 15:43 ABG pCO2 58.0 mmHg (35.0-45.0) H* 04/20/24 15:43 ABG pO2 62.0 mmHg (80.0-100.0) L 04/20/24 15:43 ABG HCO3 32.0 mmol/L (22-26) H* 04/20/24 15:43 ABG O2 Saturation 90.0 % (90-100) 04/20/24 15:43 ABG Base Excess 4.9 mmol/L (-2.0-2.0) H 04/20/24 15:43 Jered Test N/a 04/20/24 15:43 A-a Gradient 94.0 mmHg 04/20/24 15:43 FiO2 32.0 04/20/24 15:43 Blood Gas Comments Pt adelaida well. kg/eb 04/20/24 15:43 Sodium 142 mmol/L (136-145) 04/23/24 05:45 Corrected Sodium 143 mmol/L (136-145) 04/23/24 05:45 Potassium 4.7 mmol/L (3.5-5.1) 04/23/24 05:45 Chloride 104 mmol/L (98-107) 04/23/24 05:45 Carbon Dioxide 33.1 mmol/L (21-32) H 04/23/24 05:45 BUN 29 mg/dL (7-18) H 04/23/24 05:45 Creatinine 1.25 mg/dL (0.70-1.30) 04/23/24 05:45 Est GFR (MDRD) Af Amer > 60 (>60) 04/23/24 05:45 Est GFR (MDRD) Non-Af > 60 (>60) 04/23/24 05:45 Glucose 130 mg/dL (65-99) H 04/23/24 05:45 Calcium 8.5 mg/dL (8.5-10.1) 04/23/24 05:45 Corrected Calcium 9.5 mg/dL (8.5-10.1) 04/23/24 05:45 Magnesium 1.9 mg/dL (2.0-2.9) L 04/23/24 05:45 Total Bilirubin 0.30 mg/dL (0.2-1.0) 04/23/24 05:45 AST 12 Units/L (15-37) L 04/23/24 05:45 ALT 18 Units/L (12-78) 04/23/24 05:45 Alkaline Phosphatase 67 Units/L (46-116) 04/23/24 05:45 B-Natriuretic Peptide 82.1 pg/mL (0-79) H 04/20/24 12:12 Total Protein 6.8 g/dL (6.4-8.2) 04/23/24 05:45 Albumin 2.8 g/dL (3.4-5.0) L 04/23/24 05:45 Globulin 4.0 g/dL (2.5-4.5) 04/23/24 05:45 Albumin/Globulin Ratio 0.7 Ratio (1.1-2.1) L 04/23/24 05:45 Specimen Type Random urine 04/21/24 04:26 Urine Color Yellow (YELLOW) 04/21/24 04:26 Urine Appearance Clear (CLEAR) 04/21/24 04:26 Urine pH 6.0 (5.0 - 8.0) 04/21/24 04:26 Ur Specific [place] 1.015 (1.000-1.030) 04/21/24 04:26 Urine Protein 2+ (NEGATIVE) 04/21/24 04:26 Urine Glucose (UA) 2+ (NEGATIVE) 04/21/24 04:26 Urine Ketones Negative (NEGATIVE) 04/21/24 04:26 Urine Blood 1+ (NEGATIVE) 04/21/24 04:26 Urine Nitrite Negative (NEGATIVE) 04/21/24 04:26 Urine Bilirubin Negative (NEGATIVE) 04/21/24 04:26 Urine Urobilinogen Normal (NORMAL) 04/21/24 04:26 Ur Leukocyte Esterase Negative (NEGATIVE) 04/21/24 04:26 Urine RBC None seen /HPF (0-3) 04/21/24 04:26 Urine WBC 0-2 /HPF (0-5) 04/21/24 04:26 Ur Squamous Epith Cells Rare /HPF (NEGATIVE) 04/21/24 04:26 Urine Bacteria Negative /HPF (NEGATIVE) 04/21/24 04:26 Ur Culture Indicated? 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
[2024-04-23] MEDS: NORVASC TAB 10 MG PO SCH (21:18)
[2024-04-24 06:01] LABS: BASOPHILS % (AUTO) 0.2 % (0.2-1.0); HEMATOCRIT 46.2 % (42.0-54.0); HEMOGLOBIN 15.2 g/dL (13.5-18.0); LYMPHOCYTES # (AUTO) 0.9 X10^3/uL (1.3-2.9); LYMPHOCYTES % (AUTO) 6.1 % (21.0-51.0); MEAN CORPUSCULAR HEMOGLOBIN 30.3 pg (27.0-34.0); MEAN CORPUSCULAR HGB CONC 32.9 g/dL (33.0-35.0); MEAN CORPUSCULAR VOLUME 92.2 fL (80.0-100.0); MEAN PLATELET VOLUME 7.5 fL (7.4-11.0); MONOCYTES # (AUTO) 0.9 x10^3/uL (0.3-0.8); MONOCYTES % (AUTO) 6.3 % (0.0-13.0); NEUTROPHILS # (AUTO) 12.6 x10^3/uL (2.2-4.8); NEUTROPHILS % (AUTO) 87.4 % (42.0-75.0); PLATELET COUNT 292 X10^3/uL (150.0-450.0); RED BLOOD COUNT 5.02 X10^6/uL (4.7-6.0); RED CELL DISTRIBUTION WIDTH 15.2 % (11.6-16.5); WHITE BLOOD COUNT 14.4 X10^3/uL (3.6-10.0)
[2024-04-24 06:07] LABS: ALANINE AMINOTRANSFERASE 25 Units/L (12-78); ALBUMIN 2.8 g/dL (3.4-5.0); ALKALINE PHOSPHATASE 71 Units/L (46-116); ASPARTATE AMINO TRANSFERASE 12 Units/L (15-37); BLOOD UREA NITROGEN 26 mg/dL (7-18); CALCIUM 8.2 mg/dL (8.5-10.1); CHLORIDE 102 mmol/L (98-107); COR CA(FOR HYPOALB) 9.2 mg/dL (8.5-10.1); COR NA(FOR HYPERGLY) 143 mmol/L (136-145); CREATININE 1.22 mg/dL (0.70-1.30); GLUCOSE 196 mg/dL (65-99); POTASSIUM 4.6 mmol/L (3.5-5.1); SODIUM 141 mmol/L (136-145); TOTAL PROTEIN 6.9 g/dL (6.4-8.2); eGFR NON BLACK RACES > 60 (>60)
--- NOTE | 2024-04-24 09:50 | PCM.PROG ---
Progress Note Progress Note for Day of Date of Exam: 04/24/24 Subjective Subjective: Patient seen at bedside, no acute events overnight. He remains on 3L NC. He continues to have dyspnea with minimal exertion. He is not coughing up much sputum. CXR yesterday revealed bibasilar opacities. He remains on IV antibiotics, nebs and steroids. His BP was elevated yesterday evening, norvasc 10 mg was added. Labs/imaging reviewed: -WBC 14.4 Hgb 15.2 BUN/Cr 26/1.22 -CXR: bibasilar opacities -Blood Cx neg -AIT pending Plan: Wean O2 as tolerated, continue nebs, pulmicort and IS. Will order CTA chest to evaluate further. Continue Zosyn and solumedrol. Continue home med ications. Continue lasix. Monitor BP, continue norvasc 10 mg daily. Replace electrolytes as per protocol. Follow pending cultures and AIT. Monitor AM labs/imaging. PT/OT as tolerated. Past Medical Family Social History Allergies: Allergies No Known Allergies Allergy (Verified 04/20/24 12:41) Vital Signs and I&O's Vital Signs: Vital Signs Temperature 98.2 F Temperature 97.6 F Pulse Rate [Brachial] 103 Pulse Rate [Brachial] 98 Pulse Rate 89 Respiratory Rate 20 Respiratory Rate 20 Blood Pressure [Right Arm] 161/68 Blood Pressure [Right Arm] 142/87 O2 Sat by Pulse Oximetry 92 O2 Sat by Pulse Oximetry 90 O2 Sat by Pulse Oximetry 93 Intake and Output: Intake & Output 04/21/24 04/22/24 04/23/24 04/24/24 23:59 23:59 23:59 23:59 Intake Total 2988 / 2988 2779 / 2779 4383 / 4383 1067 / 1067 Output Total 1302 / 1302 2525 / 2525 2545 / 2545 800 / 800 Balance 1686 / 1686 254 / 254 1838 / 1838 267 / 267 Physical Exam Oriented: Normal Nose: Normal Throat: Normal Respiratory: Generalized, Diminished and Wheezes Cardiovascular: Normal Auscultation: Bowel Sounds: Normal Palpation: Normal Tenderness: Normal Skin: Normal Musculoskeletal: Normal Psychiatric: Normal Mood Description: Calm Affect: Normal Speech Pattern: Clear and Appropriate Laboratory and Diagnostics 04/24/24 05:34 04/24/24 05:34 Labs: 04/20/24 14:00 Blood Blood Culture - Preliminary 04/20/24 13:50 Blood Blood Culture - Preliminary Laboratory WBC 14.4 X10^3/uL (3.6-10.0) H 04/24/24 05:34 RBC 5.02 X10^6/uL (4.7-6.0) 04/24/24 05:34 Hgb 15.2 g/dL (13.5-18.0) 04/24/24 05:34 Hct 46.2 % (42.0-54.0) 04/24/24 05:34 MCV 92.2 fL (80.0-100.0) 04/24/24 05:34 MCH 30.3 pg (27.0-34.0) 04/24/24 05:34 MCHC 32.9 g/dL (33.0-35.0) L 04/24/24 05:34 RDW 15.2 % (11.6-16.5) 04/24/24 05:34 Plt Count 292 X10^3/uL (150.0-450.0) 04/24/24 05:34 Plt Count Comment Adequate (ADEQUATE) 04/21/24 05:41 MPV 7.5 fL (7.4-11.0) 04/24/24 05:34 Neut % (Auto) 87.4 % (42.0-75.0) H 04/24/24 05:34 Lymph % (Auto) 6.1 % (21.0-51.0) L 04/24/24 05:34 [place] % (Auto) 6.3 % (0.0-13.0) 04/24/24 05:34 Eos % (Auto) 0.0 % (0.9-2.9) L 04/24/24 05:34 Baso % (Auto) 0.2 % (0.2-1.0) 04/24/24 05:34 Neut # (Auto) 12.6 x10^3/uL (2.2-4.8) H 04/24/24 05:34 Lymph # (Auto) 0.9 X10^3/uL (1.3-2.9) L 04/24/24 05:34 [place] # (Auto) 0.9 x10^3/uL (0.3-0.8) H 04/24/24 05:34 Eos # (Auto) 0.0 x10^3/uL (0.0-0.2) 04/24/24 05:34 Baso # (Auto) 0.0 X10^3/uL (0.0-0.1) 04/24/24 05:34 Absolute Nucleated RBC 0.1 /100WBC 04/24/24 05:34 Total Counted 100 04/21/24 05:41 Neutrophils % (Manual) 95 % (39-76) H 04/21/24 05:41 Lymphocytes % (Manual) 4 % (13-43) L 04/21/24 05:41 Monocytes % (Manual) 1 % (4-9) L 04/21/24 05:41 Plt Morphology Comment Normal (NORMAL) 04/21/24 05:41 RBC Morphology Normal (NORMAL) 04/21/24 05:41 Sample Site Rb 04/20/24 15:43 ABG pH 7.350 (7.35-7.45) 04/20/24 15:43 ABG pCO2 58.0 mmHg (35.0-45.0) H* 04/20/24 15:43 ABG pO2 62.0 mmHg (80.0-100.0) L 04/20/24 15:43 ABG HCO3 32.0 mmol/L (22-26) H* 04/20/24 15:43 ABG O2 Saturation 90.0 % (90-100) 04/20/24 15:43 ABG Base Excess 4.9 mmol/L (-2.0-2.0) H 04/20/24 15:43 Jered Test N/a 04/20/24 15:43 A-a Gradient 94.0 mmHg 04/20/24 15:43 FiO2 32.0 04/20/24 15:43 Blood Gas Comments Pt adelaida well. kg/eb 04/20/24 15:43 Sodium 141 mmol/L (136-145) 04/24/24 05:34 Corrected Sodium 143 mmol/L (136-145) 04/24/24 05:34 Potassium 4.6 mmol/L (3.5-5.1) 04/24/24 05:34 Chloride 102 mmol/L (98-107) 04/24/24 05:34 Carbon Dioxide 34.0 mmol/L (21-32) H 04/24/24 05:34 BUN 26 mg/dL (7-18) H 04/24/24 05:34 Creatinine 1.22 mg/dL (0.70-1.30) 04/24/24 05:34 Est GFR (MDRD) Af Amer > 60 (>60) 04/24/24 05:34 Est GFR (MDRD) Non-Af > 60 (>60) 04/24/24 05:34 Glucose 196 mg/dL (65-99) H 04/24/24 05:34 Calcium 8.2 mg/dL (8.5-10.1) L 04/24/24 05:34 Corrected Calcium 9.2 mg/dL (8.5-10.1) 04/24/24 05:34 Magnesium 2.1 mg/dL (2.0-2.9) 04/24/24 05:34 Total Bilirubin 0.30 mg/dL (0.2-1.0) 04/24/24 05:34 AST 12 Units/L (15-37) L 04/24/24 05:34 ALT 25 Units/L (12-78) 04/24/24 05:34 Alkaline Phosphatase 71 Units/L (46-116) 04/24/24 05:34 B-Natriuretic Peptide 82.1 pg/mL (0-79) H 04/20/24 12:12 Total Protein 6.9 g/dL (6.4-8.2) 04/24/24 05:34 Albumin 2.8 g/dL (3.4-5.0) L 04/24/24 05:34 Globulin 4.1 g/dL (2.5-4.5) 04/24/24 05:34 Albumin/Globulin Ratio 0.7 Ratio (1.1-2.1) L 04/24/24 05:34 Specimen Type Random urine 04/21/24 04:26 Urine Color Yellow (YELLOW) 04/21/24 04:26 Urine Appearance Clear (CLEAR) 04/21/24 04:26 Urine pH 6.0 (5.0 - 8.0) 04/21/24 04:26 Ur Specific [place] 1.015 (1.000-1.030) 04/21/24 04:26 Urine Protein 2+ (NEGATIVE) 04/21/24 04:26 Urine Glucose (UA) 2+ (NEGATIVE) 04/21/24 04:26 Urine Ketones Negative (NEGATIVE) 04/21/24 04:26 Urine Blood 1+ (NEGATIVE) 04/21/24 04:26 Urine Nitrite Negative (NEGATIVE) 04/21/24 04:26 Urine Bilirubin Negative (NEGATIVE) 04/21/24 04:26 Urine Urobilinogen Normal (NORMAL) 04/21/24 04:26 Ur Leukocyte Esterase Negative (NEGATIVE) 04/21/24 04:26 Urine RBC None seen /HPF (0-3) 04/21/24 04:26 Urine WBC 0-2 /HPF (0-5) 04/21/24 04:26 Ur Squamous Epith Cells Rare /HPF (NEGATIVE) 04/21/24 04:26 Urine Bacteria Negative /HPF (NEGATIVE) 04/21/24 04:26 Ur Culture Indicated? 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
--- NOTE | 2024-04-24 12:03 | CT ---
EXAM:CT PULMONARY ANGIOGRAM CHEST WITH CONTRAST (PE PROTOCOL)HISTORY:worsening dyspnea;COMPARISON:None.TECHNIQUE:Axial CT images were obtained through the chest after the intravenous administration of contrast. Coronal reformatted images were included. Maximum intensity projection (MIP) images were performed per pulmonary angiogram protocol.Informed written consent was obtained prior to contrast administration.All CT scans at this facility use dose modulation, iterative reconstruction, and/or weight based dosing when appropriate to reduce radiation dose to as low as reasonably achievable.FINDINGS:HEART AND PULMONARY ARTERIES: No evidence of right ventricular strain. No filling defects in the pulmonary arteries to suggest emboli.SUPPORT DEVICES: NoneLYMPH NODES: No pathologically enlarged nodes.LUNGS AND PLEURA: Lungs show areas of subsegmental atelectasis in the lung bases. No focal pneumonia. Mild emphysemaAIRWAYS: NormalUPPER ABDOMEN: NormalBONES: NormalIMPRESSION:No evidence of pulmonary emboli at this time. Scattered areas of subsegmental basilar atelectasis. Mild emphysemaTHIS IS AN ELECTRONICALLY VERIFIED FINAL REPORT04/24/2024 12:00 PM - Electronically signed by Han Alexandre MD
[2024-04-24] MEDS: ZITHROMAX TAB 250 MG PO SCH (13:52)
[2024-04-24] MEDS: OMNIPAQUE 350 mg/mL 100 mL BTL 100 ML ONE (17:42)
[2024-04-25 06:24] LABS: BASOPHILS % (AUTO) 0.3 % (0.2-1.0); HEMOGLOBIN 15.1 g/dL (13.5-18.0); LYMPHOCYTES # (AUTO) 0.7 X10^3/uL (1.3-2.9); MEAN CORPUSCULAR HEMOGLOBIN 31.1 pg (27.0-34.0); MEAN CORPUSCULAR HGB CONC 33.5 g/dL (33.0-35.0); MEAN CORPUSCULAR VOLUME 92.7 fL (80.0-100.0); MEAN PLATELET VOLUME 7.5 fL (7.4-11.0); MONOCYTES # (AUTO) 0.8 x10^3/uL (0.3-0.8); MONOCYTES % (AUTO) 5.5 % (0.0-13.0); NEUTROPHILS # (AUTO) 12.5 x10^3/uL (2.2-4.8); NEUTROPHILS % (AUTO) 89.2 % (42.0-75.0); PLATELET COUNT 285 X10^3/uL (150.0-450.0); RED BLOOD COUNT 4.85 X10^6/uL (4.7-6.0); RED CELL DISTRIBUTION WIDTH 14.9 % (11.6-16.5)
[2024-04-25 06:38] LABS: ALANINE AMINOTRANSFERASE 31 Units/L (12-78); ALBUMIN 2.8 g/dL (3.4-5.0); ALKALINE PHOSPHATASE 62 Units/L (46-116); ASPARTATE AMINO TRANSFERASE 13 Units/L (15-37); BLOOD UREA NITROGEN 25 mg/dL (7-18); CALCIUM 8.2 mg/dL (8.5-10.1); CARBON DIOXIDE 35.4 mmol/L (21-32); CHLORIDE 102 mmol/L (98-107); COR CA(FOR HYPOALB) 9.2 mg/dL (8.5-10.1); COR NA(FOR HYPERGLY) 143 mmol/L (136-145); CREATININE 1.18 mg/dL (0.70-1.30); GLUCOSE 204 mg/dL (65-99); POTASSIUM 4.5 mmol/L (3.5-5.1); SODIUM 141 mmol/L (136-145); TOTAL PROTEIN 6.7 g/dL (6.4-8.2); eGFR NON BLACK RACES > 60 (>60)
[2024-04-25 09:54] VITALS: O2SAT 91
[2024-04-25 10:03] VITALS: RESP 22
[2024-04-25 10:31] VITALS: BP 177/91; PULSE 95; TEMP 97.5
--- NOTE | 2024-04-27 11:48 | W.DIS.FURT ---
Summary of Discharge Discharge Summary of Date Date of Exam: 04/25/24 Admission Date Date of Admission: 04/20/24 Admission Diagnosis Patient Problems (Updated 04/27/24 @ 11:47 by Adam Lebron MD) COPD exacerbation (Acute) J44.1 Community acquired pneumonia of right lower lobe of lung (Acute) J18.9 Hospital Course: Patient is a 69-year-old male admitted for COPD exacerbation. His hospital/treatment course included supplemental oxygen, IV antibiotics, bronchodilators, and steroids. He responded well to treatments. Symptoms significantly improved. Patient was discharged in stable condition. He has home oxygen set up. AIT positive for Influenza A and E coli. He is out of the window for tamiflu. Rx cefdinir and prednisone for 5 days. Patient instructed follow-up with PCP in 1 week. Vital Signs: Vital Signs (72 hours) 04/22/24 12:00 04/22/24 16:00 04/22/24 20:00 Temperature 98.3 F 98.2 F 98.8 F Pulse Rate Pulse Rate [Brachial] 91 H 95 H 100 H Respiratory Rate 19 19 19 Blood Pressure [Left Arm] 139/65 Blood Pressure [Right Arm] 168/83 174/86 O2 Sat by Pulse Oximetry 93 L 93 L 91 L Oxygen Delivery Method Nasal Cannula Nasal Cannula Room Air Oxygen Flow Rate 3 3 FIO2% 04/23/24 00:00 04/22/24 19:00 04/23/24 04:00 Temperature 98.5 F 97.7 F Pulse Rate Pulse Rate [Brachial] 70 101 H Respiratory Rate 16 20 Blood Pressure [Left Arm] 127/72 Blood Pressure [Right Arm] 137/88 O2 Sat by Pulse Oximetry 97 92 L Oxygen Delivery Method Room Air Room Air Room Air Oxygen Flow Rate FIO2% 04/22/24 21:20 04/23/24 04:48 04/22/24 21:22 Temperature Pulse Rate 100 H Pulse Rate [Brachial] Respiratory Rate Blood Pressure [Left Arm] Blood Pressure [Right Arm] O2 Sat by Pulse Oximetry 95 Oxygen Delivery Method Nasal Cannula Nasal Cannula Oxygen Flow Rate 3 3 FIO2% 32 32 04/23/24 00:40 04/23/24 05:25 04/23/24 08:00 Temperature 97.7 F Pulse Rate 86 95 H Pulse Rate [Brachial] 108 H Respiratory Rate 23 Blood Pressure [Left Arm] Blood Pressure [Right Arm] 169/73 O2 Sat by Pulse Oximetry 94 L 93 L 94 L Oxygen Delivery Method Nasal Cannula Oxygen Flow Rate 3 FIO2% 04/23/24 09:05 04/23/24 07:00 04/23/24 10:38 Temperature Pulse Rate Pulse Rate [Brachial] Respiratory Rate 18 Blood Pressure [Left Arm] Blood Pressure [Right Arm] O2 Sat by Pulse Oximetry Oxygen Delivery Method Nasal Cannula Room Air Oxygen Flow Rate 3 FIO2% 32 04/23/24 11:38 04/23/24 12:00 04/23/24 16:00 Temperature 98.2 F 97.5 F L Pulse Rate Pulse Rate [Brachial] 92 H 96 H Respiratory Rate 18 23 23 Blood Pressure [Left Arm] Blood Pressure [Right Arm] 169/72 176/71 O2 Sat by Pulse Oximetry 94 L 90 L Oxygen Delivery Method Room Air Nasal Cannula Oxygen Flow Rate 3 FIO2% 04/23/24 20:00 04/23/24 19:00 04/24/24 00:00 Temperature 97.8 F 97.8 F Pulse Rate Pulse Rate [Brachial] 104 H 105 H Respiratory Rate 20 16 Blood Pressure [Left Arm] Blood Pressure [Right Arm] 190/92 170/88 O2 Sat by Pulse Oximetry 93 L 92 L Oxygen Delivery Method Room Air Room Air Room Air Oxygen Flow Rate FIO2% 04/24/24 04:00 04/23/24 21:24 04/23/24 21:24 Temperature 97.6 F Pulse Rate 98 H Pulse Rate [Brachial] 98 H Respiratory Rate 20 Blood Pressure [Left Arm] Blood Pressure [Right Arm] 142/87 O2 Sat by Pulse Oximetry 93 L 92 L Oxygen Delivery Method Room Air Nasal Cannula Oxygen Flow Rate 3 FIO2% 32 04/24/24 08:00 04/24/24 09:19 04/24/24 09:20 Temperature 98.2 F Pulse Rate 89 Pulse Rate [Brachial] 103 H Respiratory Rate 20 Blood Pressure [Left Arm] Blood Pressure [Right Arm] 161/68 O2 Sat by Pulse Oximetry 90 L 92 L Oxygen Delivery Method Room Air Nasal Cannula Oxygen Flow Rate 3 FIO2% 32 04/24/24 13:53 04/24/24 07:00 04/24/24 12:00 Temperature 97.6 F Pulse Rate Pulse Rate [Brachial] 97 H Respiratory Rate 22 20 Blood Pressure [Left Arm] Blood Pressure [Right Arm] 143/85 O2 Sat by Pulse Oximetry 90 L Oxygen Delivery Method Nasal Cannula Room Air Oxygen Flow Rate 3 FIO2% 04/24/24 16:00 04/24/24 14:53 04/24/24 20:16 Temperature 98.4 F Pulse Rate Pulse Rate [Brachial] 90 Respiratory Rate 19 19 Blood Pressure [Left Arm] Blood Pressure [Right Arm] 141/70 O2 Sat by Pulse Oximetry 97 Oxygen Delivery Method Room Air Room Air Oxygen Flow Rate 3 FIO2% 32 04/24/24 20:17 04/24/24 20:00 04/24/24 19:00 Temperature 97.8 F Pulse Rate 97 H Pulse Rate [Brachial] 108 H Respiratory Rate 21 Blood Pressure [Left Arm] Blood Pressure [Right Arm] 162/80 O2 Sat by Pulse Oximetry 97 94 L Oxygen Delivery Method Room Air Nasal Cannula Oxygen Flow Rate 3 FIO2% 04/25/24 00:16 04/25/24 00:00 04/25/24 04:00 Temperature 97.8 F 97.9 F Pulse Rate 103 H Pulse Rate [Brachial] 95 H 97 H Respiratory Rate 20 19 Blood Pressure [Left Arm] Blood Pressure [Right Arm] 140/68 O2 Sat by Pulse Oximetry 97 94 L 95 Oxygen Delivery Method Nasal Cannula Nasal Cannula Oxygen Flow Rate FIO2% 04/25/24 06:03 04/25/24 10:03 04/25/24 09:53 Temperature Pulse Rate 92 H Pulse Rate [Brachial] Respiratory Rate 22 Blood Pressure [Left Arm] Blood Pressure [Right Arm] O2 Sat by Pulse Oximetry 95 Oxygen Delivery Method Nasal Cannula Oxygen Flow Rate 3 FIO2% 32 04/25/24 09:53 04/25/24 08:00 Temperature 97.5 F L Pulse Rate 90 Pulse Rate [Brachial] 95 H Respiratory Rate 22 Blood Pressure [Left Arm] Blood Pressure [Right Arm] 177/91 O2 Sat by Pulse Oximetry 91 L 93 L Oxygen Delivery Method Nasal Cannula Oxygen Flow Rate FIO2% Labs: Laboratory Last Values WBC 14.0 X10^3/uL (3.6-10.0) H 04/25/24 05:49 RBC 4.85 X10^6/uL (4.7-6.0) 04/25/24 05:49 Hgb 15.1 g/dL (13.5-18.0) 04/25/24 05:49 Hct 45.0 % (42.0-54.0) 04/25/24 05:49 MCV 92.7 fL (80.0-100.0) 04/25/24 05:49 MCH 31.1 pg (27.0-34.0) 04/25/24 05:49 MCHC 33.5 g/dL (33.0-35.0) 04/25/24 05:49 RDW 14.9 % (11.6-16.5) 04/25/24 05:49 Plt Count 285 X10^3/uL (150.0-450.0) 04/25/24 05:49 Plt Count Comment Adequate (ADEQUATE) 04/21/24 05:41 MPV 7.5 fL (7.4-11.0) 04/25/24 05:49 Neut % (Auto) 89.2 % (42.0-75.0) H 04/25/24 05:49 Lymph % (Auto) 5.0 % (21.0-51.0) L 04/25/24 05:49 Brule % (Auto) 5.5 % (0.0-13.0) 04/25/24 05:49 Eos % (Auto) 0.0 % (0.9-2.9) L 04/25/24 05:49 Baso % (Auto) 0.3 % (0.2-1.0) 04/25/24 05:49 Neut # (Auto) 12.5 x10^3/uL (2.2-4.8) H 04/25/24 05:49 Lymph # (Auto) 0.7 X10^3/uL (1.3-2.9) L 04/25/24 05:49 Brule # (Auto) 0.8 x10^3/uL (0.3-0.8) 04/25/24 05:49 Eos # (Auto) 0.0 x10^3/uL (0.0-0.2) 04/25/24 05:49 Baso # (Auto) 0.0 X10^3/uL (0.0-0.1) 04/25/24 05:49 Absolute Nucleated RBC 0.1 /100WBC 04/25/24 05:49 Total Counted 100 04/21/24 05:41 Neutrophils % (Manual) 95 % (39-76) H 04/21/24 05:41 Lymphocytes % (Manual) 4 % (13-43) L 04/21/24 05:41 Monocytes % (Manual) 1 % (4-9) L 04/21/24 05:41 Plt Morphology Comment Normal (NORMAL) 04/21/24 05:41 RBC Morphology Normal (NORMAL) 04/21/24 05:41 Sample Site Rb 04/20/24 15:43 ABG pH 7.350 (7.35-7.45) 04/20/24 15:43 ABG pCO2 58.0 mmHg (35.0-45.0) H* 04/20/24 15:43 ABG pO2 62.0 mmHg (80.0-100.0) L 04/20/24 15:43 ABG HCO3 32.0 mmol/L (22-26) H* 04/20/24 15:43 ABG O2 Saturation 90.0 % (90-100) 04/20/24 15:43 ABG Base Excess 4.9 mmol/L (-2.0-2.0) H 04/20/24 15:43 Jered Test N/a 04/20/24 15:43 A-a Gradient 94.0 mmHg 04/20/24 15:43 FiO2 32.0 04/20/24 15:43 Blood Gas Comments Pt adelaida well. kg/eb 04/20/24 15:43 Sodium 141 mmol/L (136-145) 04/25/24 05:49 Corrected Sodium 143 mmol/L (136-145) 04/25/24 05:49 Potassium 4.5 mmol/L (3.5-5.1) 04/25/24 05:49 Chloride 102 mmol/L (98-107) 04/25/24 05:49 Carbon Dioxide 35.4 mmol/L (21-32) H 04/25/24 05:49 BUN 25 mg/dL (7-18) H 04/25/24 05:49 Creatinine 1.18 mg/dL (0.70-1.30) 04/25/24 05:49 Est GFR (MDRD) Af Amer > 60 (>60) 04/25/24 05:49 Est GFR (MDRD) Non-Af > 60 (>60) 04/25/24 05:49 Glucose 204 mg/dL (65-99) H 04/25/24 05:49 Calcium 8.2 mg/dL (8.5-10.1) L 04/25/24 05:49 Corrected Calcium 9.2 mg/dL (8.5-10.1) 04/25/24 05:49 Magnesium 2.1 mg/dL (2.0-2.9) 04/24/24 05:34 Total Bilirubin 0.30 mg/dL (0.2-1.0) 04/25/24 05:49 AST 13 Units/L (15-37) L 04/25/24 05:49 ALT 31 Units/L (12-78) 04/25/24 05:49 Alkaline Phosphatase 62 Units/L (46-116) 04/25/24 05:49 B-Natriuretic Peptide 82.1 pg/mL (0-79) H 04/20/24 12:12 Total Protein 6.7 g/dL (6.4-8.2) 04/25/24 05:49 Albumin 2.8 g/dL (3.4-5.0) L 04/25/24 05:49 Globulin 3.9 g/dL (2.5-4.5) 04/25/24 05:49 Albumin/Globulin Ratio 0.7 Ratio (1.1-2.1) L 04/25/24 05:49 Specimen Type Random urine 04/21/24 04:26 Urine Color Yellow (YELLOW) 04/21/24 04:26 Urine Appearance Clear (CLEAR) 04/21/24 04:26 Urine pH 6.0 (5.0 - 8.0) 04/21/24 04:26 Ur Specific [place] 1.015 (1.000-1.030) 04/21/24 04:26 Urine Protein 2+ (NEGATIVE) 04/21/24 04:26 Urine Glucose (UA) 2+ (NEGATIVE) 04/21/24 04:26 Urine Ketones Negative (NEGATIVE) 04/21/24 04:26 Urine Blood 1+ (NEGATIVE) 04/21/24 04:26 Urine Nitrite Negative (NEGATIVE) 04/21/24 04:26 Urine Bilirubin Negative (NEGATIVE) 04/21/24 04:26 Urine Urobilinogen Normal (NORMAL) 04/21/24 04:26 Ur Leukocyte Esterase Negative (NEGATIVE) 04/21/24 04:26 Urine RBC None seen /HPF (0-3) 04/21/24 04:26 Urine WBC 0-2 /HPF (0-5) 04/21/24 04:26 Ur Squamous Epith Cells Rare /HPF (NEGATIVE) 04/21/24 04:26 Urine Bacteria Negative /HPF (NEGATIVE) 04/21/24 04:26 Ur Culture Indicated? No/not indicated 04/21/24 04:26 Reason For Visit: COPD EXACERBATION, PNA Discharge Date Discharge Date: 04/25/24 Discharge Diagnosis All Active Problems (Updated 04/27/24 @ 11:47 by Adam Lebron MD) Influenza A (Acute) HTN (hypertension) (Chronic) Depression (Chronic) Gastroesophageal reflux disease (Chronic) Sepsis (Acute) Morbid obesity (Chronic) JACINTO and COPD overlap syndrome (Chronic) Bilateral lower extremity edema (Chronic) Acute UTI (Acute) Diarrhea (Acute) COVID (Acute) COPD exacerbation (Acute) Acute bacterial sinusitis (Acute) Community acquired pneumonia of right lower lobe of lung (Acute) Lower extremity cellulitis (Acute) Plan of Treatment: Continue with present treatment and follow up plan. Pt is to keep follow up appointment as instructed and take medications as ordered. Discharge Medications Discharge Medications: No Known Allergies Allergy (Verified 04/20/24 12:41) New Prescriptions cefdinir 300 mg capsule 300 mg PO BID 5 days #10 caps 04/25/24 [Rx] prednisone 20 mg tablet 40 mg PO QDAY 5 days #10 tabs 04/25/24 [Rx] Discharge Plan Discharge Plan Hospital Course: Patient is a 69-year-old male admitted for COPD exacerbation. His hospital/treatment course included supplemental oxygen, IV antibiotics, bronchodilators, and steroids. He responded well to treatments. Symptoms significantly improved. Patient was discharged in stable condition. He has home oxygen set up. AIT positive for Influenza A and E coli. He is out of the window for tamiflu. Rx cefdinir and prednisone for 5 days. Patient instructed follow-up with PCP in 1 week. Patient Disposition: HOME, SELF-CARE Condition: Stable Health Concerns: Post Hospitalization: new medications and changes needed to prevent readmission or further decline. Pt educated and given instructions on all concerns. Care Plan Goals: Problem: Pain/Alteration in Comfort Goal: Improve/ Resolve Pain; Achieve Pain Tolerance Instructions: Take pain medications as prescribed. Contact your primary care provider if your pain is unrelieved or worsens. Follow up with primary care provider as directed. Plan of Treatment: Continue with present treatment and follow up plan. Pt is to keep follow up appointment as instructed and take medications as ordered. Prescriptions: New prednisone 20 mg Tablet 40 mg PO QDAY 5 Days Qty: 10 0RF cefdinir 300 mg Capsule 300 mg PO BID 5 Days Qty: 10 0RF No Action meloxicam 15 mg tablet 15 mg PO QDAY Trelegy Ellipta 100-62.5-25 mcg blister with device 1 ea INHALATION QDAY clopidogrel 75 mg tablet 75 mg PO QDAY hydrocodone-acetaminophen 10-325 mg tablet 1 tab PO TID PRN (Reason: pain) omeprazole 40 mg capsule,delayed release(DR/EC) 40 mg PO QDAY montelukast 10 mg tablet 10 mg PO DAILY furosemide 20 mg tablet 20 mg PO QDAY paroxetine HCl 40 mg tablet 40 mg PO QDAY sildenafil (pulm.hypertension) 20 mg tablet 20 mg PO QDAY PRN Orders to Discharge Patient Discharge Orders: Discharge (Routine); Ordered 04/25/24 Ordered By: Adam Lebron Follow ups/Referrals Follow ups/Referrals: Palomo Raymundo [Primary Care Provider] - 05/01/24 10:30 am Instructions Instructions: Chronic Obstructive Pulmonary Disease Exacerbation, How to Take Your Blood Pressure, [id number], Living With COPD, Cough, Adult Stand Alone Forms: Excuse From Work or School, Find Help Web Site, Post Hospital Follow Up Care
== END 2024-04-25 12:50 | disposition home or self-care (01) ==
LOC: ER 11:04 → INTOOBSV 14:46 → MED/SURG 14:46
PROVIDERS: ADMIT Family Medicine; ATTEND Internal Medicine
DX: J10.1 Influenza due to other identified influenza virus with other respiratory manifestations; B96.29 Other Escherichia coli [E. coli] as the cause of diseases classified elsewhere; G47.33 Obstructive sleep apnea (adult) (pediatric); R26.89 Other abnormalities of gait and mobility; J18.8 Other pneumonia, unspecified organism; J44.1 Chronic obstructive pulmonary disease with (acute) exacerbation; Z68.42 Body mass index [BMI] 45.0-49.9, adult; R73.09 Other abnormal glucose; E66.01 Morbid (severe) obesity due to excess calories; F32.89 Other specified depressive episodes; I10 Essential (primary) hypertension; K21.9 Gastro-esophageal reflux disease without esophagitis; R06.02 Shortness of breath; Z72.0 Tobacco use; E83.42 Hypomagnesemia; R60.0 Localized edema